=== PATIENT | male | born 1975 | race Hispanic/Latino ===

== ENCOUNTER 2016-11-17 12:37 | Inpatient (IN) | payer MEDICAID ==
[2016-11-17 12:38] VITALS: BMI 23.7
[2016-11-17 13:51] LABS: BASO % 0.3 % (0.0-2.0); EOS # 0.1 K/uL (0.0-0.7); EOS % 0.7 % (0.0-4.0); LYMPH # 1.9 K/uL (1.0-4.3); LYMPH % 22.2 % (20.0-40.0); MEAN CELL VOLUME 84.8 fL (80.0-94.0); MEAN CORPUSCULAR HEMOGLOBIN 28.6 pg (27.0-31.0); MEAN CORPUSCULAR HGB CONC 33.8 g/dL (33.0-37.0); MEAN PLATELET VOLUME 6.7 fL (7.2-11.7); MONO # 0.6 K/uL (0.0-0.8); RED CELL DISTRIBUTION WIDTH 12.8 % (11.5-14.5); WHITE BLOOD COUNT 8.8 K/uL (4.8-10.8)
[2016-11-17 13:58] LABS: RBC URINE < 1 /hpf (0-3); URINE BILIRUBIN NEGATIVE (NEGATIVE); URINE BLOOD NEGATIVE (NEGATIVE); URINE COLOR Yellow (YELLOW); URINE GLUCOSE (UA) NORMAL (Normal); URINE KETONE NEGATIVE (NEGATIVE); URINE LEUKOCYTE ESTERASE NEG Leu/uL (Negative); URINE PROTEIN NEGATIVE (NEGATIVE); URINE UROBILINOGEN NORMAL mg/dL (0.2-1.0); WBC URINE < 1 /hpf (0-5)
[2016-11-17 13:59] LABS: CHLORIDE 96 mmol/L (98-107); SODIUM 137 mmol/L (132-148)
[2016-11-17 14:00] LABS: POTASSIUM 4.3 mmol/L (3.6-5.2)
[2016-11-17 14:02] LABS: ALB/GLOB RATIO 1.3 (1.0-2.1); ALKALINE PHOSPHATASE 64 U/L (38-126); ALT/SGPT 36 U/L (21-72); AST/SGOT 34 U/L (17-59); BILIRUBIN,TOTAL 0.6 mg/dL (0.2-1.3); BLOOD UREA NITROGEN 19 mg/dL (9-20); CALCIUM 8.8 mg/dl (8.6-10.4); CARBON DIOXIDE 28 mmol/L (22-30); GFR AFRICAN-AMERICAN > 60; GLUCOSE,RANDOM 98 mg/dL (75-110); TOTAL PROTEIN 7.3 g/dL (6.3-8.3)
[2016-11-17 14:03] LABS: ALCOHOL SERUM < 10 mg/dl (0-10)
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
[2016-11-17] MEDS ORDERED: Buprenorphine Hydrochloride 2 mg SL ONE ×2 (22:25→23:25)
[2016-11-18] MEDS ORDERED: Buprenorphine Hydrochloride 2 mg SL ONE (10:00)
[2016-11-18] MEDS: Multiple Vitamins Tab PO SCH (10:41)
[2016-11-19] MEDS: Multiple Vitamins Tab PO SCH (09:48)
[2016-11-19] MEDS: Buprenorphine Hydrochloride 2 mg SL SCH (10:03)
[2016-11-19 16:03] VITALS: RESP 18
[2016-11-19 19:48] VITALS: O2SAT 99
--- NOTE | 2016-11-19 19:48 | PCM.PSYCH ---
Initial Psychiatric Evaluation - Initial Psychiatric Evaluation Legal Status: Capacity Chief Complaint (in patient's own words): I gotta get off the heroin. Patient's Reaction to Hospitalization: I'm glad I came. History of Present Illness and Precipitating Events: Pt is a single domiciled unemployed white male who [facility]. Pt started using painkillers at age 29. He uses 30 bags of heroin iv daily. Pt uses cocaine every time he uses heroin. He started drinking at age 15 and it has been a problem for several years. He drinks on average 1 pint of hard liquor a day. Pt. has been in several detoxes, including [facility], [facility], and [facility]. Pt's longest period of total sobriety was 8 years and he relapsed in 2004. Pt has no legal or history. Mother and father are both living; they diverced with pt was 1 yr. Pt has 2 half-brothers and 1 half sister. Pt denies any family history of substance abuse. However, there is a family history of depression and anxiety in his mother and a half-brother. Pt has been hospitalized for anxiety at the [facility]. He has been prescribed Seroquel, 100mg and Neurontin, 400 mg POTIE, Pt denies any past and current SI/HI. Current Medications: Active Medications Generic Name Dose Route Start Last Admin Trade Name Zev PRN Reason Stop Dose Admin Buprenorphine HCl 4 mg 11/19/16 09:52 11/19/16 10:03 Subutex SL 11/21/16 09:51 4 mg Q24H KAE Administration Taper Chlordiazepoxide 25 mg 11/17/16 17:59 11/18/16 21:02 Librium PO 25 mg Q4H PRN Administration Alcohol Withdrawal Chlordiazepoxide 25 mg 11/17/16 18:00 11/19/16 17:33 Librium PO 11/21/16 17:59 25 mg BID KAE Administration Taper Clonidine HCl 0.1 mg 11/17/16 17:05 Catapres PO Q8 PRN opiate withdrawal Folic Acid 1 mg 11/18/16 10:00 11/19/16 09:48 Folic Acid PO 1 mg DAILY KAE Administration Gabapentin 400 mg 11/18/16 14:00 11/19/16 17:33 Neurontin PO 400 mg TID KAE Administration Multivitamins 1 tab 11/18/16 10:00 11/19/16 09:48 Hexavitamin PO 1 tab DAILY KAE Administration Quetiapine Fumarate 100 mg 11/17/16 22:30 11/18/16 21:02 Seroquel PO 100 mg HS KAE Administration Thiamine HCl 100 mg 11/18/16 10:00 11/19/16 09:48 Vitamin B1 Tab PO 100 mg DAILY KAE Administration Trazodone HCl 50 mg 11/17/16 17:04 Desyrel PO HS PRN insomnia Past Psychiatric History - Past Psychiatric History Prior Professional Help: [facility]PI Pertinent Medical Hx (Current Medical&Sleep Prob, Allergies): Allergies Allergy/AdvReac Type Severity Reaction Status Date / Time Penicillins Allergy Verified 05/28/16 16:53 shellfish derived Allergy Verified 05/28/16 16:53 trazodone Allergy Verified 05/28/16 16:53 QUEtiapine [Seroquel] 100 mg PO HS PRN #30 tab 06/02/16 Gabapentin [Neurontin] 400 mg PO TID #90 cap 11/01/16 hydrOXYzine HCl [Atarax] 50 mg PO BID #60 tab 11/01/16 Cyclobenzaprine [Flexeril] 5 mg PO BID PRN 11/17/16 Review of Systems - Constitutional Constitutional: Malaise - EENT Eyes: UNREMARKABLE Ears: UNREMARKABLE Additional comments: Rhinorrhea - Cardiovascular Cardiovascular: UNREMARKABLE - Respiratory Respiratory: UNREMARKABLE - Gastrointestinal Gastrointestinal: Cramping, Diarrhea, Nausea - Genitourinary Genitourinary: UNREMARKABLE - Reproductive: Male Reproductive:Male: UNREMARKABLE - Musculoskeletal Musculoskeletal: Arthralgias, Myalgias - Integumentary Integumentary: UNREMARKABLE - Neurological Neurological: Tremor - Endocrine Endocrine: UNREMARKABLE - Hematologic/Lymphatic Hematologic: UNREMARKABLE Mental Status Examination - Personal Presentation Personal Presentation: Looks stated age - Affect Affect: Constricted - Motor Activity Motor Activity: Calm - Reliability in Providing Information Reliability in Providing Information: Good - Speech Speech: Organized - Mood Mood: Anxious - Formal Thought Process Formal Thought Process: No Impairment - Cognitive Functions Orientation: Person, Place, Situation, Time Sensorium: Alert Attention/Concentration: Attentive Abstract Thinking: As evidence by abstract perception of proverbs Estimate of Intelligence: Average Judgement: Intact, as evidence by: Good judgement Memory: Recent intact, as evidence by: Ability to recall events of the day, Remote intact, as evidenced by: Abilit to recall sig. life events - Risk Risk: Withdrawal - Strength & Assets Inventory Strength & Assets Inventory: Intelligence, Employment history, Cooperative DSM 5 DX - DSM 5 DSM 5 Diagnosis: Opiate withdrawal, severe Opiate use disorder, severe Alcohol withdrawal, severe Cocaine use disorder, severe Anxiety Opiate withdrawal, Methadone taper, Group, Milieu, recreational therapy, individual supportive psychotherapy. CBT CA Opiate use disorder, Group, Milieu, recreational therapy, individual supportive psychotherapy. CBT CA Alcohol withdrawal, Librium taper, Group, Milieu, recreational therapy, individual supportive psychotherapy. CBT CA Cocaine use disorder Group, Milieu, recreational therapy, individual supportive psychotherapy. CBT CA Anxiety. Seroquel and Neurontin - Recommended/Plan of Treatment Projected ELOS: 5 days Prognosis: good Discharge Plan and Discharge Criteria: no acute withdrawal symptoms - Smoking Cessation Smoking Cessation Initiated: No
--- NOTE | 2016-11-19 21:37 | PCM.PYCHPN ---
Psychiatric Progress Note - Psychiatric Progress Note Patient Chief Complaint: i feel like "shit" Ihave aches and pains, hot and cold sweats Problems Identified/Issues Discussed: withdrawal symptoms, PAWS relapse prevention Medical Problems: nothing acute Diagnostic Results: reviewed DSM 5 Symptoms Update: moderate withdrawal symptoms\\ Medication Change: Yes (subutex and librium tapers) Mental Status Examination - Cognitive Function Orientation: Place, Situation, Time Memory: Intact Attention: WNL Concentration: Poor Association: WNL Fund of Knowledge: WNL - Mood Mood: Anxious - Affect Affect: Constricted - Speech Speech: Appropriate - Suicidal Ideation Suicidal Ideation: No - Homicidal Ideation Homicidal Ideation: No Goal/Treatment Plan - Goal/Treatment Plan Need for Continued Stay: Discharge may exacerbated symptoms Progress Toward Problem(s) and Goals/Treatment Plan: opiate withdrawal- subutex protocoll opiate use disorder groups, supportive psychotherapy [place] CBT alcohol withdrawal librium taper alcohol use disorder groups supportive psychotherapy [place] CBT cocaine use disorder group supportive psychotherapy [place] CBT anxiety Neurontin Trazodone Estimated Date of D/C: 11/21/16 - Smoking Cessation Smoking Cessation Initiated: No
[2016-11-20 05:21] VITALS: TEMP 97.7
[2016-11-20 09:07] VITALS: BP 99/63; PULSE 81
[2016-11-20] MEDS: Multiple Vitamins Tab PO SCH (09:14)
[2016-11-20] MEDS: Buprenorphine Hydrochloride 2 mg SL SCH (09:14)
--- NOTE | 2016-11-20 09:56 | PCM.PYCHDC ---
Mental Status Examination - Mental Status Examination Orientation: Person Discharge Summary - Discharge Note Consultations:: List each consultation separately and include: 1. Reason for request. 2. Findings. 3. Follow-up Summary of Hospital Course include:: 1. Description of specific treatment plan utilized for patients during their course of treatmen. 2. Summarize the time- course for resolution of acute symptoms and/or regressed behaviors. 3. Describe issues identified and worked on during hospitalization. 4. Describe medication utilized. 5. Describe medical problems identified and treated. 6. Reassessment of suicide risk - Final Diagnosis (DSM 5) Condition upon Discharge: GOOD Disposition: HOME/ ROUTINE Prescriptions/Medication Reconciliation: Gabapentin [Neurontin] 400 mg PO TID #90 cap QUEtiapine [Seroquel] 100 mg PO HS #30 tab
== END 2016-11-20 10:30 | disposition home or self-care (01) | DRG 745 ==
LOC: C.ER 12:37 → C.7D 16:53
PROVIDERS: ADMIT Psychiatry & Neurology Psychiatry; ATTEND Psychiatry & Neurology Psychiatry
PROC: HZ52ZZZ Individual Psychotherapy for Substance Abuse Treatment, Cognitive-Behavioral (ICD-10-PCS; principal; 2016-11-17)
PROC: HZ59ZZZ Individual Psychotherapy for Substance Abuse Treatment, Supportive (ICD-10-PCS; 2016-11-17)
PROC: HZ91ZZZ Pharmacotherapy for Substance Abuse Treatment, Methadone Maintenance (ICD-10-PCS; 2016-11-17)
PROC: HZ83ZZZ Medication Management for Substance Abuse Treatment, Antabuse (ICD-10-PCS; 2016-11-17)
PROC: HZ2ZZZZ Detoxification Services for Substance Abuse Treatment (ICD-10-PCS; 2016-11-17)
DX: F11.23 Opioid dependence with withdrawal (principal); F14.20 Cocaine dependence, uncomplicated; F10.239 Alcohol dependence with withdrawal, unspecified; Z81.8 Family history of other mental and behavioral disorders; F41.9 Anxiety disorder, unspecified

== ENCOUNTER 2017-03-06 08:44 | Inpatient (IN) | payer MEDICAID ==
[2017-03-06 08:45] VITALS: BMI 23.7
[2017-03-06 09:47] LABS: BASO # 0.1 K/uL (0.0-0.2); BASO % 0.9 % (0.0-2.0); EOS # 0.1 K/uL (0.0-0.7); EOS % 0.7 % (0.0-4.0); HEMOGLOBIN 13.2 g/dL (12.0-18.0); LYMPH # 1.5 K/uL (1.0-4.3); LYMPH % 21.9 % (20.0-40.0); MEAN CELL VOLUME 85.6 fL (80.0-94.0); MEAN CORPUSCULAR HEMOGLOBIN 28.8 pg (27.0-31.0); MEAN CORPUSCULAR HGB CONC 33.7 g/dL (33.0-37.0); MEAN PLATELET VOLUME 7.3 fL (7.2-11.7); MONO # 0.6 K/uL (0.0-0.8); NEUT # 4.8 K/uL (1.8-7.0); NEUT % 68.5 % (50.0-75.0); NRBC % 0.1 % (0.0-2.0); RBC 4.58 Mil/uL (4.40-5.90); RED CELL DISTRIBUTION WIDTH 12.8 % (11.5-14.5)
[2017-03-06 09:52] LABS: ALB/GLOB RATIO 1.5 (1.0-2.1); GFR AFRICAN-AMERICAN > 60; GFR NON-AFRICAN AMERICAN > 60
[2017-03-06 09:53] LABS: ALT/SGPT 36 U/L (21-72); AST/SGOT 33 U/L (17-59); BLOOD UREA NITROGEN 17 mg/dL (9-20); CALCIUM 8.8 mg/dl (8.6-10.4)
[2017-03-06 11:23] LABS: URINE BACTERIA RARE (<OCC); URINE BILIRUBIN NEGATIVE (NEGATIVE); URINE BLOOD NEGATIVE (NEGATIVE); URINE CLARITY Clear (Clear); URINE COLOR Yellow (YELLOW); URINE GLUCOSE (UA) NORMAL (Normal); URINE LEUKOCYTE ESTERASE NEG Leu/uL (Negative); URINE NITRATE NEGATIVE (NEGATIVE); URINE PROTEIN NEGATIVE (NEGATIVE); URINE UROBILINOGEN NORMAL mg/dL (0.2-1.0)
[2017-03-06 11:29] LABS: BARBITURATES, UR NEGATIVE (NEGATIVE)
[2017-03-06 11:33] LABS: PHENCYCLIDINE, UR NEGATIVE (NEGATIVE)
[2017-03-06 11:57] LABS: BENZODIAZEPINES, UR POSITIVE (NEGATIVE)
[2017-03-06 11:58] LABS: OPIATES, UR POSITIVE (NEGATIVE)
--- NOTE | 2017-03-06 12:03 | C.PDOC ---
History Of Present Illness 42-year-old male with PMHx of EtOH abuse, Depression and Anxiety presents to the emergency department requesting alcohol & opiate detox. Patient is a daily drinker, states his last drink was last night. He denies current physical complaints, and has no SI/HI. Time Seen by Provider: 03/06/17 08:59 Chief Complaint (Nursing): Substance Abuse History Per: Patient History/Exam Limitations: no limitations Onset/Duration Of Symptoms: Persistent Current Symptoms Are (Timing): Still Present Modifying Factor(s): Alcohol Severity: Moderate Past Medical History Reviewed: Historical Data, Nursing Documentation, Vital Signs Vital Signs: Last Vital Signs Temp 98.1 F 03/10/17 09:00 Pulse 73 03/10/17 09:00 Resp 18 03/10/17 09:00 BP 117/79 03/10/17 09:00 Pulse Ox 99 03/10/17 09:00 - Medical History PMH: Anxiety, Depression - [facility] Procedures DETOXIFICATION SERVICES FOR SUBSTANCE ABUSE TREATMENT (03/06/17) GROUP STRUCTURES ASSEMBLER FOR SUBSTANCE ABUSE TREATMENT, PSYCHOEDUCATION (03/06/17) GROUP STRUCTURES ASSEMBLER FOR SUBSTANCE ABUSE, COGNITIVE BEHAVIORAL (10/28/16) INDIV STRUCTURES ASSEMBLER FOR SUBSTANCE ABUSE TREATMENT, PSYCHOEDUCATION (10/28/16) INDIV STRUCTURES ASSEMBLER FOR SUBSTANCE ABUSE, COGNITIVE BEHAVIORAL (10/28/16) INDIV PSYCHOTHERAPY FOR SUBSTANCE ABUSE TREATMENT, SUPPORT (03/06/17) INDIV PSYCHOTHERAPY FOR SUBSTANCE ABUSE, COGNITIV BEHAVIORAL (11/17/16) MEDS MGMT FOR SUBSTANCE ABUSE TREATMENT, ANTABUSE (11/17/16) PHARMACOTHERAPY FOR SUBSTANCE ABUSE, METHADONE MAINT (11/17/16) Family History: States: No Known Family Hx - Social History Hx Tobacco Use: Yes Hx Alcohol Use: Yes Hx Substance Use: Yes - Immunization History Hx Tetanus Toxoid Vaccination: No Hx Influenza Vaccination: No Hx Pneumococcal Vaccination: No Review Of Systems Except As Marked, All Systems Reviewed And Found Negative. Constitutional: Negative for: Fever, Chills Cardiovascular: Negative for: Chest Pain, Palpitations Respiratory: Negative for: Shortness of Breath Gastrointestinal: Negative for: Nausea, Vomiting, Abdominal Pain, Diarrhea Neurological: Negative for: Weakness, Numbness, Headache, Dizziness Physical Exam - Physical Exam Appears: Well, Non-toxic, No Acute Distress Skin: Normal Color, Warm, Dry, No Rash Head: Atraumatic, Normacephalic Eye(s): bilateral: Normal Inspection Oral Mucosa: Moist Cardiovascular: Rhythm Regular Respiratory: Normal Breath Sounds, No Rales, No Rhonchi, No Wheezing Gastrointestinal/Abdominal: Normal Exam, Bowel Sounds, Soft, No Tenderness Extremity: Normal ROM Neurological/Psych: Oriented x3, Other (no tremors noted) ED Course And Treatment - Laboratory Results Result Diagrams: 03/06/17 09:27 03/06/17 09:27 O2 Sat by Pulse Oximetry: 100 (on RA) Pulse Ox Interpretation: Normal Progress Note: Blood work, UA, UDS ordered and reviewed. 12:30- Patient medically cleared. 12:41- Patient accepted by Dr. Martinez for opiate/alcohol detox admission' Disposition - Disposition Disposition: HOSPITALIZED Disposition Time: 12:41 Condition: STABLE - Clinical Impression Clinical Impression: Opiate dependence, Alcohol dependence - Scribe Statement The provider has reviewed the documentation as recorded by the Scribe (Aracely Hernandez) All medical record entries made by the Scribe were at my direction and personally dictated by me. I have reviewed the chart and agree that the record accurately reflects my personal performance of the history, physical exam, medical decision making, and the department course for this patient. I have also personally directed, reviewed, and agree with the discharge instructions and disposition. Decision To Admit - Pt Status Changed To: Hospital Disposition Of: Inpatient - Admit Certification Admit to Inpatient:: After my assessment, the patient will require hospitalization for at least two midnights. This is because of the severity of symptoms shown, intensity of services needed, and/or the medical risk in this patient being treated as an outpatient. - InPatient: Physician Admission Certification: I certify that this patient requires 2 or more midnights of care for the following reason:: see notes - . Bed Request Type: Detox Admitting Physician: Symone Martinez Patient Diagnosis: Alcohol dependence, Opiate dependence
--- NOTE | 2017-03-06 15:06 | PCM.PSYCH ---
Initial Psychiatric Evaluation - Initial Psychiatric Evaluation Type of Admission: Voluntary Legal Status: Capacity Chief Complaint (in patient's own words): "Heroin" History of Present Illness and Precipitating Events: The patient is seen, chart reviewed and case discussed. 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 He was a poor historian due to oversedation The patient is using heroin up to 40 bags intravenously for the past 13 years he states. However, he relapsed 2 weeks ago after a short period of sobriety. He also uses cocaine since early teens, 2 mg a day by snorting. He drinks alcohol but "not too much" and smokes cigarettes half pack per day. He denies other drugs. This is his third detox and he has been to rehabilitation 4 or 5 times. He was on Vivitrol and he is due for a shot due next week. He denies psych symptoms. Past psych history: Denies Family psych history: Denies Medical history: Denies Past Psychiatric History - Past Psychiatric History Previous Treatment History: None Pertinent Medical Hx (Current Medical&Sleep Prob, Allergies): Allergies Allergy/AdvReac Type Severity Reaction Status Date / Time Penicillins Allergy Verified 03/06/17 08:48 shellfish derived Allergy Verified 03/06/17 08:48 trazodone Allergy Verified 03/06/17 08:48 Gabapentin [Neurontin] 400 mg PO TID #90 cap 11/20/16 Vivitrol IM 03/06/17 Review of Systems - Psychiatric Psychiatric: Abnormal Sleep Pattern, Anxiety. absent: Homicidal Ideation, Suicidal Ideation Mental Status Examination - Personal Presentation Personal Presentation: Looks stated age - Affect Affect: Constricted - Motor Activity Motor Activity: Calm - Reliability in Providing Information Reliability in Providing Information: Fair - Speech Speech: Organized - Mood Mood: Anxious - Formal Thought Process Formal Thought Process: No Impairment - Cognitive Functions Orientation: Person, Place, Situation, Time Sensorium: Drowsy Attention/Concentration: Easily distracted Estimate of Intelligence: Average Judgement: Intact, as evidence by: Insight regarding need for hospitalization Memory: Recent intact, as evidence by: Ability to recall events of the day, Remote impaired as evidenced by: Inability to recall sig life events - Risk Risk: Withdrawal, Diminished functioning - Strength & Assets Inventory Strength & Assets Inventory: Cooperative DSM 5 DX - DSM 5 DSM 5 Diagnosis: Opioid withdrawal Opioid use d/o - severe Cocaine use d/o - severe - Recommended/Plan of Treatment Treatment Recommendations and Plan of Treatment: Subutex or methadone detox when he withdrws more Gabapentin for augmentation As needed meds and vitamins Attend groups and activities NM for abstinence and CBT for relapse prevention Support and psychoeducation Consider and encourage MAT Refer to after care 33 min Projected ELOS: 4 days Prognosis: Good with treatment Discharge Plan and Discharge Criteria: No wdw sxs refer to [facility] and IOP
--- NOTE | 2017-03-06 15:22 | PCM.BM ---
<JmNilsa - Last Filed: 03/06/17 15:36> Treatment Plan Problems - Problems identified on initial assessmt DENIAL Date Initiated: 03/06/17 Assessment reference: NA Status: Active Priority: 1 LOW MOTIVATION TO CHANGE Date Initiated: 03/06/17 Assessment reference: NA Status: Active Priority: 2 Treatment assets and liabiliti Patient Assests: adapts well, cooperative, physically healthy Patient Liabilities: substance abuse - Milieu Protocol Maintain good personal hygiene: daily Encourage regular showers, daily Remind patient to perform daily oral care, daily Assist patient to perform ADL's Conduct patient checks and document Observation sheet: Q15 minutes Maintain personal safety: every shift Educate patient to report safety concerns to staff, every shift Monitor environment for contraband/sharps Medication safety: Monitor for expected outcome, potential side effects: every shift, Assess barriers to learning: every shift, Assess readiness for medication education: every shift Milieu Narrative: Subutex or methadone detox when he withdrws more Gabapentin for augmentation As needed meds and vitamins Attend groups and activities [place] for abstinence and CBT for relapse prevention Support and psychoeducation Consider and encourage MAT Refer to after care 33 min Discharge/Continuing Care - Additional Comments Subutex or methadone detox when he withdrws more Gabapentin for augmentation As needed meds and vitamins Attend groups and activities RI for abstinence and CBT for relapse prevention Support and psychoeducation Consider and encourage MAT Refer to after care 33 min - Treatment Team Participation Patient/Family/SO Statement: Subutex or methadone detox when he withdrws more Gabapentin for augmentation As needed meds and vitamins Attend groups and activities RI for abstinence and CBT for relapse prevention Support and psychoeducation Consider and encourage MAT Refer to after care 33 min <Symone Martinze - Last Filed: 03/08/17 11:19> - Diagnosis (1) Heroin dependence Status: Acute Interventions: 03/07/17 09:54 * Assess 7x/week regarding severity of withdrawal * Educate regarding risks, benefits, side effects and alternatives of medications * Motivational interviewing for abstinence 03/08/17 11:18 * Use CBT for relapse prevention * Medication management for withdrawal symptoms * Encourage medication assisted treatment *
[2017-03-07] MEDS ORDERED: Aluminum Hydroxide/Magnesium Hydroxide Susp (30 mL) PO PRN (08:45)
[2017-03-07] MEDS ORDERED: Buprenorphine Hydrochloride 2 mg SL ONE ×2 (13:00→13:55)
--- NOTE | 2017-03-07 14:05 | PCM.PYCHPN ---
Psychiatric Progress Note - Psychiatric Progress Note Patient seen today, length of contact: 17 min Patient Chief Complaint: "I just want to get better and I don't want to be dependent on any medication" Problems Identified/Issues Discussed: The pt is seen, chart reviewed, case discussed with staff. Support given, CBT and NE used briefly No new symptoms reported, improving slowly and needs more time No SEs from medications, risks discussed. After care discussed. Patient doesn't want to go to rehab or stay on any medication. Expresses fear of becoming dependent on medications and believes he can stay clean after detox without rehab or medications. Medication Change: Yes (Detox changes daily) Medical Record Reviewed: Yes Mental Status Examination - Cognitive Function Orientation: Person, Place, Situation, Time Memory: Intact Attention: WNL Concentration: WNL Association: WNL Fund of Knowledge: WNL - Mood Mood: Anxious - Affect Affect: Constricted - Speech Speech: Appropriate - Formal Thought Process Formal Thought Process: No Impairment - Suicidal Ideation Suicidal Ideation: No - Homicidal Ideation Homicidal Ideation: No Goal/Treatment Plan - Goal/Treatment Plan Need for Continued Stay: Discharge may exacerbated symptoms, Severe functional impairment Progress Toward Problem(s) and Goals/Treatment Plan: Subutex or methadone detox when he withdraws more Gabapentin for augmentation As needed meds and vitamins Attend groups and activities [place] for abstinence and CBT for relapse prevention Support and psychoeducation Consider and encourage MAT Refer to after care Estimated Date of D/C: 03/10/17
[2017-03-08] MEDS: Buprenorphine Hydrochloride 2 mg SL SCH (10:26)
--- NOTE | 2017-03-08 11:22 | PCM.PYCHPN ---
Psychiatric Progress Note - Psychiatric Progress Note Patient seen today, length of contact: 16 min Patient Chief Complaint: "I'm tired" Problems Identified/Issues Discussed: The pt is seen, chart reviewed, case discussed with staff. Support given, CBT and DC used briefly No new symptoms reported, improving slowly and needs more time No SEs from medications, risks discussed. After care discussed - still only wants Vivitrol shot Medication Change: Yes (Detox changes daily) Medical Record Reviewed: Yes Mental Status Examination - Cognitive Function Orientation: Person, Place, Situation, Time Memory: Intact Attention: WNL Concentration: WNL Association: WNL Fund of Knowledge: WNL - Mood Mood: Anxious - Affect Affect: Constricted - Speech Speech: Appropriate - Formal Thought Process Formal Thought Process: No Impairment - Suicidal Ideation Suicidal Ideation: No - Homicidal Ideation Homicidal Ideation: No Goal/Treatment Plan - Goal/Treatment Plan Need for Continued Stay: Discharge may exacerbated symptoms, Severe functional impairment Progress Toward Problem(s) and Goals/Treatment Plan: Subutex or methadone detox when he withdraws more Gabapentin for augmentation As needed meds and vitamins Attend groups and activities DC for abstinence and CBT for relapse prevention Support and psychoeducation Refer to after care as planned Estimated Date of D/C: 03/10/17
[2017-03-09] MEDS: Buprenorphine Hydrochloride 2 mg SL SCH (10:27)
[2017-03-09 13:04] VITALS: RESP 18
--- NOTE | 2017-03-09 14:35 | PCM.PYCHPN ---
Psychiatric Progress Note - Psychiatric Progress Note Patient seen today, length of contact: 15 min Patient Chief Complaint: "I can't sleep" Problems Identified/Issues Discussed: The pt is seen, chart reviewed, case discussed with staff. Support given, CBT and NJ used briefly No new symptoms reported, improving slowly and needs more time No SEs from medications, risks discussed. Seroquel increased Medication Change: Yes (increase seroquel) Medical Record Reviewed: Yes Mental Status Examination - Cognitive Function Orientation: Person, Place, Situation, Time Memory: Intact Attention: WNL Concentration: WNL Association: WNL Fund of Knowledge: WNL - Mood Mood: Anxious - Affect Affect: Constricted - Speech Speech: Appropriate - Formal Thought Process Formal Thought Process: No Impairment - Suicidal Ideation Suicidal Ideation: No - Homicidal Ideation Homicidal Ideation: No Goal/Treatment Plan - Goal/Treatment Plan Need for Continued Stay: Discharge may exacerbated symptoms, Severe functional impairment Progress Toward Problem(s) and Goals/Treatment Plan: Subutex or methadone detox when he withdraws more Gabapentin for augmentation As needed meds and vitamins Attend groups and activities NJ for abstinence and CBT for relapse prevention Support and psychoeducation Refer to after care as planned Estimated Date of D/C: 03/10/17
--- NOTE | 2017-03-10 08:57 | PCM.PYCHDC ---
Mental Status Examination - Mental Status Examination Orientation: Person, Place, Situation, Time Memory: Intact Mood: Neutral Speech: Soft Attention: WNL Concentration: WNL Association: WNL Fund of Knowledge: WNL Formal Thought Process: No Impairment Description of patient's judgement and insight: good, fair Psychotic Thoughts and Behaviors: denies any AVH Suicidal Ideation: No Current Homicidal Ideation?: No Discharge Summary - Discharge Note Reason for Hospitalization: The patient is seen, chart reviewed and case discussed. 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 He was a poor historian due to oversedation The patient is using heroin up to 40 bags intravenously for the past 13 years he states. However, he relapsed 2 weeks ago after a short period of sobriety. He also uses cocaine since early teens, 2 mg a day by snorting. He drinks alcohol but "not too much" and smokes cigarettes half pack per day. He denies other drugs. This is his third detox and he has been to rehabilitation 4 or 5 times. He was on Vivitrol and he is due for a shot due next week. He denies psych symptoms. Consultations:: List each consultation separately and include: 1. Reason for request. 2. Findings. 3. Follow-up Summary of Hospital Course include:: 1. Description of specific treatment plan utilized for patients during their course of treatmen. 2. Summarize the time- course for resolution of acute symptoms and/or regressed behaviors. 3. Describe issues identified and worked on during hospitalization. 4. Describe medication utilized. 5. Describe medical problems identified and treated. 6. Reassessment of suicide risk Summary of Hospital Course: During the course of his stay, patient (pt) started progressively improving and he reports improvement in his mood and withdrawal symptoms. He started attending groups and meetings and started socializing. Patient denied any feelings of hopelessness, helplessness, and worthlessness, denied any problem with the sleep or appetite, denied suicidal ideation or homicidal ideation. Pt denied any auditory or visual hallucinations. Some changes were made in his current medications and patient was discharged on following medications. He tolerated these medications very well and denied any side effects. - Final Diagnosis (DSM 5) Condition upon Discharge: GOOD DSM 5: Opioid withdrawal Opioid use d/o - severe Cocaine use d/o - severe Disposition: HOME/ ROUTINE Follow-up Treatment Plan: Education: Pt was educated and counseled about the risks and benefits of taking and not taking medications. Pt was educated and counseled about the risks of drinking and abusing drugs. Pt was educated and counseled to go to the ER or call 911 if pt develop suicidal ideation or homicidal ideation, worsening of symptoms or severe side effects of the meds. Prescriptions/Medication Reconciliation: Gabapentin [Neurontin] 300 mg PO TID #90 cap QUEtiapine [Seroquel] 200 mg PO HS #30 tab - Smoking Cessation Smoking Cessation Medication prescribed: No - Antipsychotic Medications Pt discharged on 2 or more routine antipsychotic medications: No
[2017-03-10] MEDS: Buprenorphine Hydrochloride 2 mg SL SCH (09:10)
[2017-03-10 12:05] VITALS: BP 117/79; PULSE 73; TEMP 98.1
[2017-03-16 09:27] VITALS: O2SAT 100
== END 2017-03-10 09:35 | disposition home or self-care (01) | DRG 745 ==
LOC: C.ER 08:44 → C.7D 12:41
PROVIDERS: ADMIT Psychiatry & Neurology Psychiatry; ATTEND Psychiatry & Neurology Psychiatry
PROC: HZ2ZZZZ Detoxification Services for Substance Abuse Treatment (ICD-10-PCS; principal; 2017-03-06)
PROC: HZ59ZZZ Individual Psychotherapy for Substance Abuse Treatment, Supportive (ICD-10-PCS; 2017-03-06)
PROC: HZ46ZZZ Group Counseling for Substance Abuse Treatment, Psychoeducation (ICD-10-PCS; 2017-03-06)
DX: F11.23 Opioid dependence with withdrawal (principal); F14.10 Cocaine abuse, uncomplicated; F10.10 Alcohol abuse, uncomplicated; F17.210 Nicotine dependence, cigarettes, uncomplicated

== ENCOUNTER 2017-05-18 04:43 | Inpatient (IN) | payer MEDICAID ==
[2017-05-18 04:44] VITALS: BMI 23.7
--- NOTE | 2017-05-18 05:31 | C.PDOC ---
History Of Present Illness 42 y/o male presents to the ED requesting multidrug detox. Patient also reports worsening depression with suicidal ideation. Patient also has complaint of redness to his right forearm which began around 1 week ago. Patient states he was examined at [facility] where he was discharged with a prescription without being given any IV antibiotics or undergoing bloodwork/ imaging. Patient denies fever, chills. Time Seen by Provider: 05/18/17 05:29 Chief Complaint (Nursing): Substance Abuse History Per: Patient History/Exam Limitations: no limitations Onset/Duration Of Symptoms: Hrs Current Symptoms Are (Timing): Still Present Suicide/Self Injury Attempted (Context): None Associated Symptoms: Depression, Suicidal Thoughts, Suicidal Plan Involuntary Hold By: None Recent travel outside of the [place]: No Additional History Per: Patient Past Medical History Reviewed: Historical Data, Nursing Documentation, Vital Signs Vital Signs: Last Vital Signs Temp 98.5 F 05/18/17 04:59 Pulse 95 H 05/18/17 04:59 Resp 20 05/18/17 04:59 BP 140/82 05/18/17 04:59 Pulse Ox 96 05/18/17 06:48 - Medical History PMH: Anxiety, Depression Surgical History: No Surg Hx - [facility] Procedures DETOXIFICATION SERVICES FOR SUBSTANCE ABUSE TREATMENT (03/06/17) GROUP BOILER ENGINEER FOR SUBSTANCE ABUSE TREATMENT, PSYCHOEDUCATION (03/06/17) GROUP BOILER ENGINEER FOR SUBSTANCE ABUSE, COGNITIVE BEHAVIORAL (10/28/16) INDIV BOILER ENGINEER FOR SUBSTANCE ABUSE TREATMENT, PSYCHOEDUCATION (10/28/16) INDIV BOILER ENGINEER FOR SUBSTANCE ABUSE, COGNITIVE BEHAVIORAL (10/28/16) INDIV PSYCHOTHERAPY FOR SUBSTANCE ABUSE TREATMENT, SUPPORT (03/06/17) INDIV PSYCHOTHERAPY FOR SUBSTANCE ABUSE, COGNITIV BEHAVIORAL (11/17/16) MEDS MGMT FOR SUBSTANCE ABUSE TREATMENT, ANTABUSE (11/17/16) PHARMACOTHERAPY FOR SUBSTANCE ABUSE, METHADONE MAINT (11/17/16) Family History: States: Unknown Family Hx - Social History Hx Tobacco Use: Yes Hx Alcohol Use: No Hx Substance Use: Yes - Immunization History Hx Tetanus Toxoid Vaccination: No Hx Influenza Vaccination: No Hx Pneumococcal Vaccination: No Review Of Systems Constitutional: Negative for: Fever, Chills Skin: Positive for: Other (redness in right forearm ) Psych: Positive for: Depression, Suicidal ideation, Other (multidrug detox ) Physical Exam - Physical Exam Appears: Non-toxic, No Acute Distress Skin: Warm, Dry, Other (firm, local induration in right AC area with local cellulitis to mid-forearm ) Head: Atraumatic, Normacephalic Eye(s): bilateral: Normal Inspection Oral Mucosa: Moist Neck: Supple Chest: Symmetrical Cardiovascular: Rhythm Regular Respiratory: Normal Breath Sounds Extremity: Normal ROM, Capillary Refill (less than 2 seconds ) Neurological/Psych: Oriented x3, Normal Speech, Normal Cognition, Other (calm, cooperative, no active intoxication ) Gait: Steady ED Course And Treatment - Laboratory Results Result Diagrams: 05/18/17 06:35 ECG: Interpreted By Me ECG Rhythm: Sinus Rhythm ECG Interpretation: Normal Rate From EC O2 Sat by Pulse Oximetry: 96 (on RA) Pulse Ox Interpretation: Normal - Radiology CXR: Interpreted by Me CXR Interpretation: Yes: No Acute Disease - Other Rad R ELBOW X-Ray: Interpreted by Me (NEG) Progress Note: labs, CT Upper Extremity, Right Elbow XR, and CXR ordered and reviewed. Patient reiceived Bactrim PO and Cleocin IVP. Progress - Data Reviewed Data Reviewed: Lab, Diagnostic imaging, Old records Disposition - Disposition Disposition Time: 07:00 Condition: STABLE Forms: [employer] (Marshallese) - Clinical Impression Clinical Impression: Drug dependence, Opiate dependence, Cellulitis - Scribe Statement The provider has reviewed the documentation as recorded by the Scribe (Heidi López) Provider Attestation: All medical record entries made by the Scribe were at my direction and personally dictated by me. I have reviewed the chart and agree that the record accurately reflects my personal performance of the history, physical exam, medical decision making, and the department course for this patient. I have also personally directed, reviewed, and agree with the discharge instructions and disposition. Physician Patient Turnover Patient Signed Over To: Arelis Ferreira Handoff Comments: aaron ct, dispo
[2017-05-18] MEDS ORDERED: Tmp-Smz 800 mg-160 mg DS Tab PO STA (05:38)
[2017-05-18 06:14] LABS: RBC URINE 156 /hpf (0-3); URINE BACTERIA RARE (<OCC); URINE BILIRUBIN NEGATIVE (NEGATIVE); URINE BLOOD 3+ (NEGATIVE); URINE COLOR Yellow (YELLOW); URINE GLUCOSE (UA) NORMAL (Normal); URINE KETONE NEGATIVE (NEGATIVE); URINE LEUKOCYTE ESTERASE NEG Leu/uL (Negative); URINE PROTEIN 1+ mg/dL (NEGATIVE); URINE UROBILINOGEN NORMAL mg/dL (0.2-1.0); WBC URINE 2 /hpf (0-5)
[2017-05-18 06:40] LABS: BASO % 0.3 % (0.0-2.0); EOS % 0.1 % (0.0-4.0); HEMATOCRIT 37.2 % (35.0-51.0); LYMPH # 1.1 K/uL (1.0-4.3); LYMPH % 9.5 % (20.0-40.0); MEAN CELL VOLUME 85.6 fL (80.0-94.0); MEAN CORPUSCULAR HEMOGLOBIN 29.1 pg (27.0-31.0); MEAN CORPUSCULAR HGB CONC 33.9 g/dL (33.0-37.0); MEAN PLATELET VOLUME 7.1 fL (7.2-11.7); MONO # 0.3 K/uL (0.0-0.8); MONO % 2.9 % (0.0-10.0); PLATELET COUNT 324 K/uL (130-400); RED CELL DISTRIBUTION WIDTH 13.4 % (11.5-14.5); WHITE BLOOD COUNT 11.9 K/uL (4.8-10.8)
[2017-05-18 06:46] LABS: CHLORIDE 100 mmol/L (98-107); POTASSIUM 4.5 mmol/L (3.6-5.2); SODIUM 141 mmol/L (132-148)
[2017-05-18 06:49] LABS: ALB/GLOB RATIO 1.4 (1.0-2.1); ALKALINE PHOSPHATASE 70 U/L (38-126); ALT/SGPT 34 U/L (21-72); AST/SGOT 26 U/L (17-59); BILIRUBIN,TOTAL 0.9 mg/dL (0.2-1.3); BLOOD UREA NITROGEN 18 mg/dL (9-20); CALCIUM 9.5 mg/dl (8.6-10.4); CARBON DIOXIDE 28 mmol/L (22-30); GFR AFRICAN-AMERICAN > 60; GLUCOSE,RANDOM 117 mg/dL (75-110); TOTAL PROTEIN 7.3 g/dL (6.3-8.3)
[2017-05-18 06:50] LABS: ALCOHOL SERUM < 10 mg/dl (0-10)
[2017-05-18] MEDS ORDERED: Tmp-Smz 800 mg-160 mg DS Tab ONE (06:56)
[2017-05-18] MEDS ORDERED: Clindamycin 600mg/50ml NS 600 MG/50 ML BAG IVPB ONE (06:57)
[2017-05-18 07:48] LABS: BASOPHIL 1 % (0-2); EOSINOPHIL 1 % (0-4); NEUTROPHIL 87 % (50-75); TOTAL CELLS COUNTED 100
--- NOTE | 2017-05-18 07:48 | RAD ---
HISTORY: Detox/Psy COMPARISON: No prior. TECHNIQUE: Chest PA and lateral FINDINGS: LUNGS: No active pulmonary disease. PLEURA: No significant pleural effusion identified. No pneumothorax apparent. CARDIOVASCULAR: Normal. OSSEOUS STRUCTURES: No significant abnormalities. VISUALIZED UPPER ABDOMEN: Normal. OTHER FINDINGS: None. IMPRESSION: No active disease.
[2017-05-18 07:49] LABS: LARGE PLATELETS PRESENT
[2017-05-18] MEDS ORDERED: Iodixanol 320 MG/ML 100 ML BOTTLE IV ONE (07:55)
--- NOTE | 2017-05-18 08:46 | RAD ---
PROCEDURE: Radiographs of the right elbow. HISTORY: SWELLING RO FB COMPARISON: No prior. FINDINGS: BONES: Normal. No fracture. JOINTS: Normal. No osteoarthritis. SOFT TISSUES: Soft tissue swelling. No evidence of radiopaque foreign body. JOINT EFFUSION: None. OTHER FINDINGS: None. IMPRESSION: No evidence of a fracture or dislocation. No evidence of radiopaque foreign body.
--- NOTE | 2017-05-18 10:06 | CT ---
PROCEDURE: CT of the right elbow with contrast HISTORY: HO IVDA SWELLING RO ABSCESS. Right elbow swelling COMPARISON: No prior similar study available for comparison. Patient had x-ray of the right elbow done on 05/18/2017 at 5:57 TECHNIQUE: Axial and reformatted coronal and sagittal CT images of the right elbow were obtained after IV contrast administration. IV contrast dose: 100 mL Visipaque 320. Total exam D LP: 227.09 FINDINGS: There are subcutaneous inflammatory changes and a swelling at the anterior aspect of the right elbow and antecubital fossa. There is heterogeneous subcutaneous collection at the anterior aspect of the right elbow/antecubital fossa measures approximately 28 x 26 x 25 millimeter. Findings suspicious for subcutaneous abscess formation versus phlegmon. There are adjacent subcutaneous inflammatory changes. The osseous structures are grossly unremarkable. Otherwise the visualized soft tissue at the right elbow is also grossly unremarkable. IMPRESSION: Subcutaneous inflammatory changes and mild swelling at the anterior aspect of the right elbow. Subcutaneous heterogeneous round/oval shaped collection or phlegmon at the anterior aspect of the right elbow/antecubital fossa measures 28 x 27 x 25 millimeter may represent an early abscess formation versus subcutaneous phlegmon.
[2017-05-18] MEDS ORDERED: Lactated Ringer's 1,000 ML IV SCH (12:00)
--- NOTE | 2017-05-18 12:00 | CP.PCM.CON ---
<Beverly De Leon - Last Filed: 05/18/17 14:08> History of Present Illness - History of Present Illness History of Present Illness: surgery 42M w polysubstance abuse came to ED with R arm abscess. Pt reports that he did IV drugs on Sunday last week and noticed redness and swelling on R antecubital area. It is tender to palpation and symptoms has gotten worse. Denies F/C/N/V/D/CP/SOB/syncopy/bleeding/drainage. Pt went to another hospital and received ABX but the symptoms persist. Pt reports that he had cocain yesterday. U tox was positive for cocain, benzo, marijuana. WBC is 13. VSS. Surgery is consulted to evaluate for abscess. Pt denies having abscess or incision and drainage in the past. PMH: EtOH, IVDA, Polysubstance abuse. Review of Systems - Review of Systems Review of Systems: See HPI Past Patient History - Infectious Disease Hx of Infectious Diseases: None - Past Medical History & Family History Past Medical History?: Yes - Past Social History Smoking Status: Light Smoker < 10 Cigarettes Daily - CARDIAC Hx Cardiac Disorders: No Hx Hypertension: No - PULMONARY Hx Tuberculosis: No - NEUROLOGICAL HX Cerebrovascular Accident: No Hx Seizures: No - HEMATOLOGICAL/ONCOLOGICAL Hx Cancer: No Hx Human Immunodeficiency Virus (HIV): No - INTEGUMENTARY Other/Comment: CELLULITIS RIGHT ARM(FROM IV DRUG USE) - MUSCULOSKELETAL/RHEUMATOLOGICAL Hx Falls: No - GENITOURINARY/GYNECOLOGICAL Hx Sexually Transmitted Disorders: No - PSYCHIATRIC Hx Anxiety: Yes Hx Depression: Yes Hx Substance Use: Yes - SURGICAL HISTORY Hx Surgeries: No - ANESTHESIA Hx Anesthesia: No Hx Anesthesia Reactions: No Hx Malignant Hyperthermia: No Meds Allergies/Adverse Reactions: Allergies Allergy/AdvReac Type Severity Reaction Status Date / Time Penicillins Allergy Verified 05/18/17 04:56 shellfish derived Allergy Verified 05/18/17 04:56 trazodone Allergy Verified 05/18/17 04:56 - Medications Medications: Current Medications Lactated Ringer's (Lactated Ringer's) 1,000 mls @ 100 mls/hr IV .Q10H KAE Vancomycin HCl 1,000 mg/ (Sodium Chloride) 250 mls @ 166.6 mls/hr IVPB Q12H KAE Physical Exam - Constitutional Appears: No Acute Distress - Head Exam Head Exam: ATRAUMATIC, NORMAL INSPECTION, NORMOCEPHALIC - Eye Exam Eye Exam: EOMI, Normal appearance, PERRL Pupil Exam: NORMAL ACCOMODATION, PERRL - ENT Exam ENT Exam: Mucous Membranes Moist, Normal Exam - Neck Exam Neck exam: Positive for: Normal Inspection - Respiratory Exam Respiratory Exam: Clear to Auscultation Bilateral, NORMAL BREATHING PATTERN - Cardiovascular Exam Cardiovascular Exam: REGULAR RHYTHM - Extremities Exam Extremities exam: Positive for: full ROM, normal capillary refill, tenderness, pedal pulses present. Negative for: joint swelling, normal inspection, pedal edema Additional comments: R antecubital 3x4cm erythema. indurated. fluctuant. TTP. - Neurological Exam Neurological exam: Alert, CN II-XII Intact, Normal Gait, Oriented x3, Reflexes Normal - Psychiatric Exam Psychiatric exam: Normal Mood - Skin Skin Exam: Dry, Erythema, Intact, Warm Results - Vital Signs Recent Vital Signs: Last Vital Signs Temp 98.5 F 05/18/17 11:36 Pulse 63 05/18/17 11:36 Resp 16 05/18/17 11:36 BP 108/68 05/18/17 11:36 Pulse Ox 100 05/18/17 11:36 - Labs Result Diagrams: 05/18/17 06:35 05/18/17 06:35 Labs: Laboratory Results - last 24 hr 05/18/17 05/18/17 05/18/17 06:06 06:06 06:35 WBC 11.9 H D RBC 4.35 L Hgb 12.6 Hct 37.2 MCV 85.6 MCH 29.1 MCHC 33.9 RDW 13.4 Plt Count 324 MPV 7.1 L Neut % (Auto) 87.2 H Lymph % (Auto) 9.5 L Gillespie % (Auto) 2.9 Eos % (Auto) 0.1 Baso % (Auto) 0.3 Neut # 10.4 H Lymph # 1.1 Gillespie # 0.3 Eos # 0.0 Baso # 0.0 Neutrophils % (Manual) 87 H Lymphocytes % (Manual) 8 L Monocytes % (Manual) 3 Eosinophils % (Manual) 1 Basophils % (Manual) 1 Platelet Estimate Normal Large Platelets Present Ovalocytes Slight Sodium Potassium Chloride Carbon Dioxide Anion Gap BUN Creatinine Est GFR ( Amer) Est GFR (Non-Af Amer) Random Glucose Calcium Total Bilirubin AST ALT Alkaline Phosphatase Total Protein Albumin Globulin Albumin/Globulin Ratio Urine Color Yellow Urine Clarity Hazy Urine pH 5.0 Ur Specific Benton 1.028 Urine Protein 1+ H Urine Glucose (UA) Normal Urine Ketones Negative Urine Blood 3+ H Urine Nitrate Negative Urine Bilirubin Negative Urine Urobilinogen Normal Ur Leukocyte Esterase Neg Urine WBC (Auto) 2 Urine RBC (Auto) 156 H Ur Squamous Epith Cells 1 Urine Bacteria Rare Hyaline Casts 3-5 H Urine Opiates Screen Negative Urine Methadone Screen Negative Ur Barbiturates Screen Negative Ur Phencyclidine Scrn Negative Ur Amphetamines Screen Negative U Benzodiazepines Scrn Positive U Oth Cocaine Metabols Positive U Cannabinoids Screen Positive Alcohol, Quantitative 05/18/17 06:35 WBC RBC Hgb Hct MCV MCH MCHC RDW Plt Count MPV Neut % (Auto) Lymph % (Auto) Gillespie % (Auto) Eos % (Auto) Baso % (Auto) Neut # Lymph # Gillespie # Eos # Baso # Neutrophils % (Manual) Lymphocytes % (Manual) Monocytes % (Manual) Eosinophils % (Manual) Basophils % (Manual) Platelet Estimate Large Platelets Ovalocytes Sodium 141 Potassium 4.5 Chloride 100 Carbon Dioxide 28 Anion Gap 18 BUN 18 Creatinine 1.2 Est GFR ( Amer) > 60 Est GFR (Non-Af Amer) > 60 Random Glucose 117 H Calcium 9.5 Total Bilirubin 0.9 AST 26 ALT 34 Alkaline Phosphatase 70 Total Protein 7.3 Albumin 4.3 Globulin 3.0 Albumin/Globulin Ratio 1.4 Urine Color Urine Clarity Urine pH Ur Specific Benton Urine Protein Urine Glucose (UA) Urine Ketones Urine Blood Urine Nitrate Urine Bilirubin Urine Urobilinogen Ur Leukocyte Esterase Urine WBC (Auto) Urine RBC (Auto) Ur Squamous Epith Cells Urine Bacteria Hyaline Casts Urine Opiates Screen Urine Methadone Screen Ur Barbiturates Screen Ur Phencyclidine Scrn Ur Amphetamines Screen U Benzodiazepines Scrn U Oth Cocaine Metabols U Cannabinoids Screen Alcohol, Quantitative < 10 Assessment & Plan - Assessment and Plan (Free Text) Assessment: 42M w PMH of polysubstance abuse and IVDA came with R arm abscess Utox + for cocaine, Benzo, marijuana Afebrile Mild leukocytosis -OR tomorrow for I &D. -Pt had cocaine yesterday and need 24hr clearance prior to OR -ABX -Medical management DW Dr. Chou <Kody Chou B - Last Filed: 05/18/17 21:13> Meds - Medications Medications: Current Medications Benzocaine/Menthol (Cepacol Sore Throat) 1 paradise MT QID [facility] Last Admin: 05/18/17 20:05 Dose: 1 paradise Famotidine (Pepcid) 20 mg IVP Q12 [facility] Gabapentin (Neurontin) 600 mg PO TID [facility] Last Admin: 05/18/17 18:25 Dose: 600 mg Heparin Sodium (Porcine) (Heparin) 5,000 units SC Q8 KAE Hydroxyzine HCl (Atarax) 50 mg PO Q6H PRN PRN Reason: Anxiety Vancomycin HCl 1,000 mg/ (Sodium Chloride) 250 mls @ 166.6 mls/hr IVPB Q12H [facility] Last Admin: 05/18/17 12:43 Dose: 166.6 mls/hr Clindamycin Phosphate 600 mg/ (Sodium Chloride) 54 mls @ 100 mls/hr IVPB Q8 [facility] Sodium Chloride (Sodium Chloride 0.9%) 1,000 mls @ 100 mls/hr IV .Q10H [facility] Last Admin: 05/18/17 15:55 Dose: 100 mls/hr Ketorolac Tromethamine (Toradol) 30 mg IVP Q6 PRN PRN Reason: Pain, severe (8-10) Last Admin: 05/18/17 16:12 Dose: 30 mg Lorazepam (Ativan) 1 mg PO DAILY [facility] Morphine Sulfate (Morphine) 2 mg SC Q6 PRN PRN Reason: Pain, moderate (4-7) Quetiapine Fumarate (Seroquel) 200 mg PO HS [facility] Trazodone HCl (Desyrel) 100 mg PO HS PRN PRN Reason: Insomnia Results - Vital Signs Recent Vital Signs: Last Vital Signs Temp 97.9 F 05/18/17 15:00 Pulse 71 05/18/17 15:00 Resp 20 05/18/17 15:00 BP 112/61 05/18/17 15:00 Pulse Ox 97 05/18/17 15:00 - Labs Result Diagrams: 05/18/17 06:35 05/18/17 06:35 Labs: Laboratory Results - last 24 hr 05/18/17 05/18/17 05/18/17 06:06 06:06 06:35 WBC 11.9 H D RBC 4.35 L Hgb 12.6 Hct 37.2 MCV 85.6 MCH 29.1 MCHC 33.9 RDW 13.4 Plt Count 324 MPV 7.1 L Neut % (Auto) 87.2 H Lymph % (Auto) 9.5 L Gillespie % (Auto) 2.9 Eos % (Auto) 0.1 Baso % (Auto) 0.3 Neut # 10.4 H Lymph # 1.1 Gillespie # 0.3 Eos # 0.0 Baso # 0.0 Neutrophils % (Manual) 87 H Lymphocytes % (Manual) 8 L Monocytes % (Manual) 3 Eosinophils % (Manual) 1 Basophils % (Manual) 1 Platelet Estimate Normal Large Platelets Present Ovalocytes Slight Sodium Potassium Chloride Carbon Dioxide Anion Gap BUN Creatinine Est GFR ( Amer) Est GFR (Non-Af Amer) Random Glucose Calcium Total Bilirubin AST ALT Alkaline Phosphatase Total Protein Albumin Globulin Albumin/Globulin Ratio Urine Color Yellow Urine Clarity Hazy Urine pH 5.0 Ur Specific Benton 1.028 Urine Protein 1+ H Urine Glucose (UA) Normal Urine Ketones Negative Urine Blood 3+ H Urine Nitrate Negative Urine Bilirubin Negative Urine Urobilinogen Normal Ur Leukocyte Esterase Neg Urine WBC (Auto) 2 Urine RBC (Auto) 156 H Ur Squamous Epith Cells 1 Urine Bacteria Rare Hyaline Casts 3-5 H Urine Opiates Screen Negative Urine Methadone Screen Negative Ur Barbiturates Screen Negative Ur Phencyclidine Scrn Negative Ur Amphetamines Screen Negative U Benzodiazepines Scrn Positive U Oth Cocaine Metabols Positive U Cannabinoids Screen Positive Alcohol, Quantitative 05/18/17 06:35 WBC RBC Hgb Hct MCV MCH MCHC RDW Plt Count MPV Neut % (Auto) Lymph % (Auto) Gillespie % (Auto) Eos % (Auto) Baso % (Auto) Neut # Lymph # Gillespie # Eos # Baso # Neutrophils % (Manual) Lymphocytes % (Manual) Monocytes % (Manual) Eosinophils % (Manual) Basophils % (Manual) Platelet Estimate Large Platelets Ovalocytes Sodium 141 Potassium 4.5 Chloride 100 Carbon Dioxide 28 Anion Gap 18 BUN 18 Creatinine 1.2 Est GFR ( Amer) > 60 Est GFR (Non-Af Amer) > 60 Random Glucose 117 H Calcium 9.5 Total Bilirubin 0.9 AST 26 ALT 34 Alkaline Phosphatase 70 Total Protein 7.3 Albumin 4.3 Globulin 3.0 Albumin/Globulin Ratio 1.4 Urine Color Urine Clarity Urine pH Ur Specific Benton Urine Protein Urine Glucose (UA) Urine Ketones Urine Blood Urine Nitrate Urine Bilirubin Urine Urobilinogen Ur Leukocyte Esterase Urine WBC (Auto) Urine RBC (Auto) Ur Squamous Epith Cells Urine Bacteria Hyaline Casts Urine Opiates Screen Urine Methadone Screen Ur Barbiturates Screen Ur Phencyclidine Scrn Ur Amphetamines Screen U Benzodiazepines Scrn U Oth Cocaine Metabols U Cannabinoids Screen Alcohol, Quantitative < 10 Attending/Attestation - Attestation I have personally seen and examined this patient.: Yes I have fully participated in the care of the patient.: Yes I have reviewed all pertinent clinical information: Yes Notes (Text): 05/18/17 21:10 Pt was seen and examined at bedside Agree with above note and assessment Pt with Active IVDA and Right Anticubital fossa abscess Pt had Coccaine today at 4 am Pt needs atleast 24 hours clearance c.w IV antibiotics Plan d.w pt in detail Risk and benefit explained in detail.
--- NOTE | 2017-05-18 14:35 | PCM.PSYCH ---
Initial Psychiatric Evaluation - Initial Psychiatric Evaluation Type of Admission: Voluntary Legal Status: Capacity Chief Complaint (in patient's own words): "I am nervous but not suicidal" History of Present Illness and Precipitating Events: The patient is seen, chart reviewed and case discussed. He is known from a recent detox admission Consult was requested for his substance use. 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 He had used iv heroin for the past 13 years. However, he admits to using cocaine more heavily now and he uses cocaine since early teens, 2-3 mg a day by snorting. He drinks alcohol but "not too much" and smokes cigarettes half pack per day. He denies other drugs. He is prescribed 1 mg/d ativan, risks discussed. He had three detoxes and he has been to rehabilitation 4 or 5 times. He denies SI now but had some vague thoughts on admission. He claims he was tsressed bd=c he was high and also thinking about his GF and his own stressors. Past psych history: Denies Family psych history: Denies Medical history: Denies Current Medications: Active Medications Generic Name Dose Route Start Last Admin Trade Name Freq PRN Reason Stop Dose Admin Gabapentin 600 mg 05/18/17 18:00 Neurontin PO TID KAE Hydroxyzine HCl 50 mg 05/18/17 14:32 Atarax PO Q6H PRN Anxiety Lactated Ringer's 1,000 mls @ 100 mls/hr 05/18/17 12:00 05/18/17 12:38 Lactated Ringer's IV 100 mls/hr .Q10H KAE Administration Vancomycin HCl 1,000 mg/ 250 mls @ 166.6 mls/hr 05/18/17 12:00 05/18/17 12:43 Sodium Chloride IVPB 166.6 mls/hr Q12H KAE Administration Lorazepam 1 mg 05/19/17 10:00 Ativan PO DAILY KAE Quetiapine Fumarate 200 mg 05/18/17 22:00 Seroquel PO HS KAE Trazodone HCl 100 mg 05/18/17 14:32 Desyrel PO HS PRN Insomnia Past Psychiatric History - Past Psychiatric History Previous Treatment History: None Pertinent Medical Hx (Current Medical&Sleep Prob, Allergies): Allergies Allergy/AdvReac Type Severity Reaction Status Date / Time Penicillins Allergy Verified 05/18/17 04:56 shellfish derived Allergy Verified 05/18/17 04:56 trazodone Allergy Verified 05/18/17 04:56 QUEtiapine [Seroquel] 200 mg PO HS #30 tab 03/09/17 Clindamycin [Cleocin] 300 mg PO Q6H 05/18/17 cloNIDine [clonidine HCl] 0.2 mg PO DAILY 05/18/17 hydrOXYzine Pamoate [Vistaril] 25 mg PO Q12H PRN 05/18/17 Review of Systems - Neurological Neurological: UNREMARKABLE - Psychiatric Psychiatric: Abnormal Sleep Pattern, Anxiety, Depression, Difficulty Concentrating. absent: Hallucinations, Homicidal Ideation, Suicidal Ideation Mental Status Examination - Personal Presentation Personal Presentation: Looks stated age - Affect Affect: Constricted - Motor Activity Motor Activity: Calm - Speech Speech: Organized - Mood Mood: Depressed, Anxious - Formal Thought Process Formal Thought Process: No Impairment - Cognitive Functions Orientation: Person, Place, Situation, Time Sensorium: Alert Attention/Concentration: Attentive, Easily distracted Estimate of Intelligence: Average Memory: Recent intact, as evidence by: Ability to recall events of the day, Remote intact, as evidenced by: Abilit to recall sig. life events - Risk Risk: Withdrawal, Diminished functioning - Strength & Assets Inventory Strength & Assets Inventory: Cooperative - Limitations Limitations: Other DSM 5 DX - DSM 5 DSM 5 Diagnosis: Opioid dependence on maintenance treatment Cocaine use d/o - severe Alcohol use d/o - moderate Major depression, moderate - Recommended/Plan of Treatment Treatment Recommendations and Plan of Treatment: Continue vivtrol outsside Ativan 1 mg As needed medications Gabapentin for augmentation Supportive therapy and psychoeducation [place] for abstinence CBT for relapse prevention Lexapro offered but wants to cont seroquel Refer to IOP Attend self-help groups as well 34 min
[2017-05-18] MEDS ORDERED: HYDROXYZINE PAMOATE 25 MG PO PRN (14:56)
[2017-05-18] MEDS: Sodium Chloride 0.9% 1,000 ML IV SCH (15:55)
[2017-05-18] MEDS: Benzocaine/Menthol (Cepacol) Lozenge MT SCH ×2 (20:05→23:08)
--- NOTE | 2017-05-18 23:33 | CP.PCM.HP ---
History of Present Illness - History of Present Illness History of Present Illness: 42M w polysubstance abuse came to ED with R arm abscess. Pt reports that he did IV drugs on Sunday last week and noticed redness and swelling on R antecubital area. It is tender to palpation and symptoms has gotten worse. Denies F/C/N/V/D/CP/SOB/syncopy/bleeding/drainage. Pt went to another hospital and received ABX but the symptoms persist. Pt reports that he had cocain yesterday. U tox was positive for cocain, benzo, marijuana. WBC is 13. VSS. Surgery is consulted to evaluate for abscess. Pt denies having abscess or incision and drainage in the past. PMH: EtOH, IVDA, Polysubstance abuse. Past Patient History - Infectious Disease Hx of Infectious Diseases: None - Past Medical History & Family History Past Medical History?: Yes - Past Social History Smoking Status: Light Smoker < 10 Cigarettes Daily - CARDIAC Hx Cardiac Disorders: No Hx Hypertension: No - PULMONARY Hx Tuberculosis: No - NEUROLOGICAL HX Cerebrovascular Accident: No Hx Seizures: No - HEMATOLOGICAL/ONCOLOGICAL Hx Cancer: No Hx Human Immunodeficiency Virus (HIV): No - INTEGUMENTARY Other/Comment: CELLULITIS RIGHT ARM(FROM IV DRUG USE) - MUSCULOSKELETAL/RHEUMATOLOGICAL Hx Falls: No - GENITOURINARY/GYNECOLOGICAL Hx Sexually Transmitted Disorders: No - PSYCHIATRIC Hx Anxiety: Yes Hx Depression: Yes Hx Substance Use: Yes - SURGICAL HISTORY Hx Surgeries: No - ANESTHESIA Hx Anesthesia: No Hx Anesthesia Reactions: No Hx Malignant Hyperthermia: No Meds Allergies/Adverse Reactions: Allergies Allergy/AdvReac Type Severity Reaction Status Date / Time Penicillins Allergy Verified 05/18/17 04:56 shellfish derived Allergy Verified 05/18/17 04:56 trazodone Allergy Verified 05/18/17 04:56 Results - Vital Signs Recent Vital Signs: Last Vital Signs Temp 99.8 F H 05/18/17 21:10 Pulse 77 05/18/17 21:10 Resp 19 05/18/17 21:10 BP 112/55 L 05/18/17 21:10 Pulse Ox 100 05/18/17 21:10 - Labs Result Diagrams: 05/18/17 06:35 05/18/17 06:35 Labs: Laboratory Results - last 24 hr 05/18/17 05/18/17 05/18/17 06:06 06:06 06:35 WBC 11.9 H D RBC 4.35 L Hgb 12.6 Hct 37.2 MCV 85.6 MCH 29.1 MCHC 33.9 RDW 13.4 Plt Count 324 MPV 7.1 L Neut % (Auto) 87.2 H Lymph % (Auto) 9.5 L Elliott % (Auto) 2.9 Eos % (Auto) 0.1 Baso % (Auto) 0.3 Neut # 10.4 H Lymph # 1.1 Elliott # 0.3 Eos # 0.0 Baso # 0.0 Neutrophils % (Manual) 87 H Lymphocytes % (Manual) 8 L Monocytes % (Manual) 3 Eosinophils % (Manual) 1 Basophils % (Manual) 1 Platelet Estimate Normal Large Platelets Present Ovalocytes Slight Sodium Potassium Chloride Carbon Dioxide Anion Gap BUN Creatinine Est GFR ( Amer) Est GFR (Non-Af Amer) Random Glucose Calcium Total Bilirubin AST ALT Alkaline Phosphatase Total Protein Albumin Globulin Albumin/Globulin Ratio Urine Color Yellow Urine Clarity Hazy Urine pH 5.0 Ur Specific Nursery 1.028 Urine Protein 1+ H Urine Glucose (UA) Normal Urine Ketones Negative Urine Blood 3+ H Urine Nitrate Negative Urine Bilirubin Negative Urine Urobilinogen Normal Ur Leukocyte Esterase Neg Urine WBC (Auto) 2 Urine RBC (Auto) 156 H Ur Squamous Epith Cells 1 Urine Bacteria Rare Hyaline Casts 3-5 H Urine Opiates Screen Negative Urine Methadone Screen Negative Ur Barbiturates Screen Negative Ur Phencyclidine Scrn Negative Ur Amphetamines Screen Negative U Benzodiazepines Scrn Positive U Oth Cocaine Metabols Positive U Cannabinoids Screen Positive Alcohol, Quantitative 05/18/17 06:35 WBC RBC Hgb Hct MCV MCH MCHC RDW Plt Count MPV Neut % (Auto) Lymph % (Auto) Elliott % (Auto) Eos % (Auto) Baso % (Auto) Neut # Lymph # Elliott # Eos # Baso # Neutrophils % (Manual) Lymphocytes % (Manual) Monocytes % (Manual) Eosinophils % (Manual) Basophils % (Manual) Platelet Estimate Large Platelets Ovalocytes Sodium 141 Potassium 4.5 Chloride 100 Carbon Dioxide 28 Anion Gap 18 BUN 18 Creatinine 1.2 Est GFR ( Amer) > 60 Est GFR (Non-Af Amer) > 60 Random Glucose 117 H Calcium 9.5 Total Bilirubin 0.9 AST 26 ALT 34 Alkaline Phosphatase 70 Total Protein 7.3 Albumin 4.3 Globulin 3.0 Albumin/Globulin Ratio 1.4 Urine Color Urine Clarity Urine pH Ur Specific Nursery Urine Protein Urine Glucose (UA) Urine Ketones Urine Blood Urine Nitrate Urine Bilirubin Urine Urobilinogen Ur Leukocyte Esterase Urine WBC (Auto) Urine RBC (Auto) Ur Squamous Epith Cells Urine Bacteria Hyaline Casts Urine Opiates Screen Urine Methadone Screen Ur Barbiturates Screen Ur Phencyclidine Scrn Ur Amphetamines Screen U Benzodiazepines Scrn U Oth Cocaine Metabols U Cannabinoids Screen Alcohol, Quantitative < 10
[2017-05-19] MEDS: Sodium Chloride 0.9% 1,000 ML IV SCH ×5 (01:24→21:30)
--- NOTE | 2017-05-19 01:32 | CARD ---
APPROVED REPORT EKG Measurement Heart [id number] <Conclusion> Normal sinus rhythm Normal ECG
[2017-05-19] MEDS ORDERED: Midazolam 2 MG/2 ML VIAL ONE (08:42)
[2017-05-19] MEDS ORDERED: Propofol 10 mg/ml Inj (20 ML) ONE ×2 (08:42→10:26)
[2017-05-19] MEDS ORDERED: Lidocaine Hydrochloride 5 ML INJ ONE (08:43)
[2017-05-19] MEDS ORDERED: Lactated Ringer's 1,000 ML IV ONE ×2 (09:06)
[2017-05-19] MEDS ORDERED: Bupivacaine 0.5%/Epi 1:200,000 (10 ML SOL) ONE (09:31)
[2017-05-19] MEDS ORDERED: Lidocaine 1% Inj (20ml) ONE (09:31)
[2017-05-19] MEDS ORDERED: Morphine 4 MG/ML VIAL ONE (10:24)
[2017-05-19] MEDS: Benzocaine/Menthol (Cepacol) Lozenge MT SCH ×4 (10:29→21:40)
[2017-05-19] MEDS ORDERED: HYDROmorphone 0.5 mg/0.5 ml ISec IVP PRN (10:42)
--- NOTE | 2017-05-19 11:06 | PCM.SURG1 ---
Surgeon's Initial Post Op Note - Surgeon's Notes Surgeon: Dr. Chou Clinical Biochemist: Dr. Reyes PGY-3 Type of Anesthesia: General LMA, Local Pre-Operative Diagnosis: Right forearm abscess Operative Findings: Right forearm abscess with purulent drainage Post-Operative Diagnosis: Right forearm abscess Operation Performed: Incision and drainage of right forearm abscess Specimen/Specimens Removed: debrided tissue, purulent material Estimated Blood Loss: EBL {In ML}: 10 Blood Products Given: N/A Drains Used: No Drains Post-Op Condition: Good Date of Surgery/Procedure: 05/19/17 Time of Surgery/Procedure: 10:00
--- NOTE | 2017-05-19 15:56 | US ---
Renal ultrasound History: Hematuria. Comparison: None available. Technique: Real-time sonography was performed through the kidneys. Findings: Right kidney: 12.5 x 3.9 x 5.2 centimeters. 3 millimeter echogenic foci in the lower pole of the right kidney suggestive for a nonobstructive calculus. No hydronephrosis. Left Kidney: 11.3 x 4.7 x 4.8 centimeters. No calculi or hydronephrosis. Visualized aorta is preserved. Underdistended urinary bladder limits evaluation. Impression: 3 millimeter nonobstructive lower pole right renal calculus. Limited evaluation of the urinary bladder.
[2017-05-20 00:51] VITALS: RESP 20
--- NOTE | 2017-05-20 03:08 | OP ---
PROCEDURE DATE: 05/19/2017 PREOPERATIVE DIAGNOSES: 1. Right antecubital fossa abscess. 2. Active IV drug abuse. POSTOPERATIVE DIAGNOSES: 1. Right antecubital fossa abscess. 2. Active IV drug abuse. PROCEDURE DONE: 1. Incision and drainage of right antecubital fossa abscess. 2. Excisional debridement of the abscess cavity. SURGEON: The procedure was done by mo Dr. Chou. RELIEF PHARMACIST: Dr. Reyes, PGY-3 resident. ANESTHESIA: General anesthesia with LMA. ESTIMATED BLOOD LOSS: Around 10 mL. DRAIN: None. PATHOLOGY: The pus was sent for the pathology. COMPLICATIONS: None. INTRAOPERATIVE FINDINGS: The patient had approximately 4 x 3 cm abscess cavity of antecubital fossa. DESCRIPTION OF PROCEDURE: On intraoperative steps, this is a 42-year-old male who was diagnosed with right antecubital fossa abscess and the patient was diagnosed with active IV drug abuse and the patient was consented for incision and drainage and debridement, brought to the OR, and placed supine on the operating table. After induction of the anesthesia, the right arm was prepped and draped in usual sterile fashion and after injecting local anesthesia, the transverse incision was made after incising the skin and subcutaneous tissue. The abscess cavity was entered and pus was taken for the culture. Abscess cavity was drained and the debridement of the wall was done and abscess cavity was packed with iodoform packing and dry sterile dressing was applied. The patient tolerated the procedure well. Count of the instruments and gauze was correct. There was no apparent complication. The patient was reversed from anesthesia and sent to the postanesthesia care unit in stable condition. Kody Chou MD [facility]
[2017-05-20 06:32] LABS: RBC URINE 1 /hpf (0-3); URINE BILIRUBIN NEGATIVE (NEGATIVE); URINE BLOOD 1+ (NEGATIVE); URINE COLOR Yellow (YELLOW); URINE GLUCOSE (UA) NORMAL (Normal); URINE KETONE NEGATIVE (NEGATIVE); URINE LEUKOCYTE ESTERASE NEG Leu/uL (Negative); URINE PROTEIN NEGATIVE (NEGATIVE); URINE UROBILINOGEN NORMAL mg/dL (0.2-1.0); WBC URINE < 1 /hpf (0-5)
[2017-05-20] MEDS: Sodium Chloride 0.9% 1,000 ML IV SCH ×2 (07:11→17:30)
[2017-05-20] MEDS: Benzocaine/Menthol (Cepacol) Lozenge MT SCH ×4 (09:58→21:00)
--- NOTE | 2017-05-20 10:40 | CP.PCM.PN ---
Subjective - Date & Time of Evaluation Date of Evaluation: 05/19/17 Time of Evaluation: 21:00 - Subjective Subjective: Pt is seen and examined, s/p Incision and drainage of right forearm abscess Objective - Vital Signs/Intake and Output Vital Signs (last 24 hours): Temp Pulse Resp BP Pulse Ox 98 F 76 20 137/89 100 05/20/17 08:07 05/20/17 08:07 05/20/17 08:07 05/20/17 08:07 05/20/17 08:07 Intake and Output: 05/20/17 05/20/17 06:59 18:59 Intake Total 1050 Balance 1050 - Medications Medications: Current Medications Benzocaine/Menthol (Cepacol Sore Throat) 1 paradise MT QID [facility] Last Admin: 05/20/17 09:58 Dose: Not Given Famotidine (Pepcid) 20 mg IVP Q12 [facility] Last Admin: 05/20/17 09:57 Dose: 20 mg Gabapentin (Neurontin) 600 mg PO TID [facility] Last Admin: 05/20/17 09:57 Dose: 600 mg Heparin Sodium (Porcine) (Heparin) 5,000 units SC Q8 [facility] Last Admin: 05/20/17 05:50 Dose: 5,000 units Hydroxyzine HCl (Atarax) 50 mg PO Q6H PRN PRN Reason: Anxiety Vancomycin HCl 1,000 mg/ (Sodium Chloride) 250 mls @ 166.6 mls/hr IVPB Q12H [facility] Last Admin: 05/20/17 00:02 Dose: 166.6 mls/hr Clindamycin Phosphate 600 mg/ (Sodium Chloride) 54 mls @ 100 mls/hr IVPB Q8 [facility] Last Admin: 05/20/17 06:03 Dose: 100 mls/hr Sodium Chloride (Sodium Chloride 0.9%) 1,000 mls @ 100 mls/hr IV .Q10H [facility] Last Admin: 05/20/17 07:11 Dose: 100 mls/hr Ketorolac Tromethamine (Toradol) 30 mg IVP Q6 PRN PRN Reason: Pain, severe (8-10) Last Admin: 05/18/17 16:12 Dose: 30 mg Lorazepam (Ativan) 1 mg PO DAILY [facility] Last Admin: 05/20/17 09:58 Dose: 1 mg Morphine Sulfate (Morphine) 4 mg IVP Q4 PRN PRN Reason: Pain, moderate (4-7) Ondansetron HCl (Zofran Inj) 4 mg IVP Q4 PRN PRN Reason: Nausea/Vomiting Quetiapine Fumarate (Seroquel) 200 mg PO HS [facility] Last Admin: 05/19/17 21:33 Dose: 200 mg - Labs Labs: 05/18/17 06:35 05/18/17 06:35 - Constitutional Appears: Well - Head Exam Head Exam: ATRAUMATIC, NORMAL INSPECTION, NORMOCEPHALIC - Eye Exam Eye Exam: EOMI, Normal appearance, PERRL Pupil Exam: NORMAL ACCOMODATION, PERRL - ENT Exam ENT Exam: Mucous Membranes Moist - Neck Exam Neck Exam: Full ROM - Neurological Exam Neurological Exam: Alert, Awake, CN II-XII Intact, Normal Gait, Oriented x3 Assessment and Plan (1) Cellulitis Status: Acute (2) Drug dependence Status: Acute (3) Opiate dependence Status: Acute (4) Alcohol dependence Status: Acute
--- NOTE | 2017-05-20 10:42 | CP.PCM.PN ---
Subjective - Date & Time of Evaluation Date of Evaluation: 05/20/17 Time of Evaluation: 21:00 Objective - Vital Signs/Intake and Output Vital Signs (last 24 hours): Temp Pulse Resp BP Pulse Ox 98 F 76 20 137/89 100 05/20/17 08:07 05/20/17 08:07 05/20/17 08:07 05/20/17 08:07 05/20/17 08:07 Intake and Output: 05/20/17 05/20/17 06:59 18:59 Intake Total 1050 Balance 1050 - Medications Medications: Current Medications Benzocaine/Menthol (Cepacol Sore Throat) 1 paradise MT QID [facility] Last Admin: 05/20/17 09:58 Dose: Not Given Famotidine (Pepcid) 20 mg IVP Q12 [facility] Last Admin: 05/20/17 09:57 Dose: 20 mg Gabapentin (Neurontin) 600 mg PO TID [facility] Last Admin: 05/20/17 09:57 Dose: 600 mg Heparin Sodium (Porcine) (Heparin) 5,000 units SC Q8 [facility] Last Admin: 05/20/17 05:50 Dose: 5,000 units Hydroxyzine HCl (Atarax) 50 mg PO Q6H PRN PRN Reason: Anxiety Vancomycin HCl 1,000 mg/ (Sodium Chloride) 250 mls @ 166.6 mls/hr IVPB Q12H [facility] Last Admin: 05/20/17 00:02 Dose: 166.6 mls/hr Clindamycin Phosphate 600 mg/ (Sodium Chloride) 54 mls @ 100 mls/hr IVPB Q8 [facility] Last Admin: 05/20/17 06:03 Dose: 100 mls/hr Sodium Chloride (Sodium Chloride 0.9%) 1,000 mls @ 100 mls/hr IV .Q10H [facility] Last Admin: 05/20/17 07:11 Dose: 100 mls/hr Ketorolac Tromethamine (Toradol) 30 mg IVP Q6 PRN PRN Reason: Pain, severe (8-10) Last Admin: 05/18/17 16:12 Dose: 30 mg Lorazepam (Ativan) 1 mg PO DAILY [facility] Last Admin: 05/20/17 09:58 Dose: 1 mg Morphine Sulfate (Morphine) 4 mg IVP Q4 PRN PRN Reason: Pain, moderate (4-7) Ondansetron HCl (Zofran Inj) 4 mg IVP Q4 PRN PRN Reason: Nausea/Vomiting Quetiapine Fumarate (Seroquel) 200 mg PO HS [facility] Last Admin: 05/19/17 21:33 Dose: 200 mg - Labs Labs: 05/18/17 06:35 05/18/17 06:35 Assessment and Plan (1) Cellulitis Status: Acute (2) Drug dependence Status: Acute (3) Opiate dependence Status: Acute (4) Alcohol dependence Status: Acute
--- NOTE | 2017-05-20 10:53 | CP.PCM.PN ---
<Urmila Wadsworth - Last Filed: 05/20/17 10:50> Subjective - Date & Time of Evaluation Date of Evaluation: 05/20/17 Time of Evaluation: 07:00 - Subjective Subjective: General Surgery Dr. Chou Pt S&E @bedside. Pt underwent I&D of R antecubital abscess yesterday. Pt tolerated the procedure well w/ no complications. NAEO. c/o severe pain. denies F/C, N/V. tolerating diet Objective - Vital Signs/Intake and Output Vital Signs (last 24 hours): Temp Pulse Resp BP Pulse Ox 98 F 76 20 137/89 100 05/20/17 08:07 05/20/17 08:07 05/20/17 08:07 05/20/17 08:07 05/20/17 08:07 Intake and Output: 05/20/17 05/20/17 06:59 18:59 Intake Total 1050 Balance 1050 - Medications Medications: Current Medications Benzocaine/Menthol (Cepacol Sore Throat) 1 paradise MT QID [facility] Last Admin: 05/20/17 09:58 Dose: Not Given Famotidine (Pepcid) 20 mg IVP Q12 [facility] Last Admin: 05/20/17 09:57 Dose: 20 mg Gabapentin (Neurontin) 600 mg PO TID [facility] Last Admin: 05/20/17 09:57 Dose: 600 mg Heparin Sodium (Porcine) (Heparin) 5,000 units SC Q8 [facility] Last Admin: 05/20/17 05:50 Dose: 5,000 units Hydroxyzine HCl (Atarax) 50 mg PO Q6H PRN PRN Reason: Anxiety Vancomycin HCl 1,000 mg/ (Sodium Chloride) 250 mls @ 166.6 mls/hr IVPB Q12H [facility] Last Admin: 05/20/17 00:02 Dose: 166.6 mls/hr Clindamycin Phosphate 600 mg/ (Sodium Chloride) 54 mls @ 100 mls/hr IVPB Q8 [facility] Last Admin: 05/20/17 06:03 Dose: 100 mls/hr Sodium Chloride (Sodium Chloride 0.9%) 1,000 mls @ 100 mls/hr IV .Q10H [facility] Last Admin: 05/20/17 07:11 Dose: 100 mls/hr Ketorolac Tromethamine (Toradol) 30 mg IVP Q6 PRN PRN Reason: Pain, severe (8-10) Last Admin: 05/18/17 16:12 Dose: 30 mg Lorazepam (Ativan) 1 mg PO DAILY [facility] Last Admin: 05/20/17 09:58 Dose: 1 mg Morphine Sulfate (Morphine) 4 mg IVP Q4 PRN PRN Reason: Pain, moderate (4-7) Ondansetron HCl (Zofran Inj) 4 mg IVP Q4 PRN PRN Reason: Nausea/Vomiting Quetiapine Fumarate (Seroquel) 200 mg PO [facility] Last Admin: 05/19/17 21:33 Dose: 200 mg - Labs Labs: 05/18/17 06:35 05/18/17 06:35 - Constitutional Appears: Non-toxic, No Acute Distress - Head Exam Head Exam: NORMAL INSPECTION - Eye Exam Eye Exam: Normal appearance - ENT Exam ENT Exam: Mucous Membranes Moist - Respiratory Exam Respiratory Exam: NORMAL BREATHING PATTERN. absent: Accessory Muscle Use, Respiratory Distress - GI/Abdominal Exam GI & Abdominal Exam: Soft. absent: Distended, Tenderness - Extremities Exam Extremities Exam: Full ROM Additional comments: R antecubital dressing c/d/i packing in place - Neurological Exam Neurological Exam: Alert, Awake, Oriented x3 - Psychiatric Exam Psychiatric exam: Normal Affect, Normal Mood - Skin Skin Exam: Dry, Intact, Warm Additional comments: multiple tattoos Assessment and Plan - Assessment and Plan (Free Text) Assessment: 42 y/o M IVDA w/ R antecubital abscess POD#1 s/p I&D - daily packing changes by surgical team - pain management - cont IV Abx per ID - continue medicla management Pt discussed w/ Dr. Effie Wadsworth DO PGY2 <Kody Chou - Last Filed: 05/23/17 11:45> Objective - Vital Signs/Intake and Output Vital Signs (last 24 hours): Temp Pulse Resp BP Pulse Ox 97.7 F 82 20 126/76 100 05/21/17 09:23 05/21/17 09:23 05/21/17 09:23 05/21/17 09:23 05/21/17 09:23 - Labs Labs: 05/18/17 06:35 05/18/17 06:35 Attending/Attestation - Attestation I have fully participated in the care of the patient.: Yes I have reviewed all pertinent clinical information, including history, physical exam and plan: Yes Notes (Text): 05/23/17 11:44 Pt is s/p I & D of right antecubital fossa abscess c/w IV antibiotics Local wound care Po analgesics prn f/u C/S
[2017-05-20] MEDS: Morphine 4 MG/ML VIAL IVP PRN ×3 (12:03→21:13)
[2017-05-21] MEDS: Sodium Chloride 0.9% 1,000 ML IV SCH ×2 (04:00→13:08)
[2017-05-21] MEDS: Morphine 4 MG/ML VIAL IVP PRN ×2 (05:23→09:36)
[2017-05-21 09:24] VITALS: BP 126/76; PULSE 82; TEMP 97.7; O2SAT 100
--- NOTE | 2017-05-21 09:29 | CP.PCM.PN ---
<Narcisa Abbott - Last Filed: 05/21/17 09:26> Subjective - Date & Time of Evaluation Date of Evaluation: 05/21/17 Time of Evaluation: : - Subjective Subjective: General Surgery - Dr. Chou Pt S&E. BRYANO. Pt denies any complaints, he states pain from site of former abscess is greatly relieved s/p I&D. Packing was removed at bedside. Pt tolerated well. Sterile gauze dressing applied. No F/C, SOB/Cp. Objective - Vital Signs/Intake and Output Vital Signs (last 24 hours): Temp Pulse Resp BP Pulse Ox 97.7 F 82 20 126/76 100 05/21/17 09:23 05/21/17 09:23 05/21/17 09:23 05/21/17 09:23 05/21/17 09:23 Intake and Output: 05/21/17 05/21/17 06:59 18:59 Intake Total 2049 Balance 2049 - Medications Medications: Current Medications Benzocaine/Menthol (Cepacol Sore Throat) 1 paradise MT QID [facility] Last Admin: 05/20/17 21:00 Dose: Not Given Famotidine (Pepcid) 20 mg IVP Q12 [facility] Last Admin: 05/20/17 21:02 Dose: 20 mg Gabapentin (Neurontin) 600 mg PO TID [facility] Last Admin: 05/20/17 18:00 Dose: 600 mg Heparin Sodium (Porcine) (Heparin) 5,000 units SC Q8 [facility] Last Admin: 05/21/17 05:38 Dose: 5,000 units Hydroxyzine HCl (Atarax) 50 mg PO Q6H PRN PRN Reason: Anxiety Vancomycin HCl 1,000 mg/ (Sodium Chloride) 250 mls @ 166.6 mls/hr IVPB Q12H [facility] Last Admin: 05/21/17 00:08 Dose: 166.6 mls/hr Clindamycin Phosphate 600 mg/ (Sodium Chloride) 54 mls @ 100 mls/hr IVPB Q8 [facility] Last Admin: 05/21/17 06:02 Dose: 100 mls/hr Sodium Chloride (Sodium Chloride 0.9%) 1,000 mls @ 100 mls/hr IV .Q10H [facility] Last Admin: 05/21/17 04:00 Dose: 100 mls/hr Ketorolac Tromethamine (Toradol) 30 mg IVP Q6 PRN PRN Reason: Pain, severe (8-10) Last Admin: 05/18/17 16:12 Dose: 30 mg Lorazepam (Ativan) 1 mg PO DAILY [facility] Last Admin: 05/20/17 09:58 Dose: 1 mg Morphine Sulfate (Morphine) 4 mg IVP Q4 PRN PRN Reason: Pain, moderate (4-7) Last Admin: 05/21/17 05:23 Dose: 4 mg Ondansetron HCl (Zofran Inj) 4 mg IVP Q4 PRN PRN Reason: Nausea/Vomiting Quetiapine Fumarate (Seroquel) 200 mg PO HS [facility] Last Admin: 05/20/17 21:02 Dose: 200 mg - Labs Labs: 05/18/17 06:35 05/18/17 06:35 - Constitutional Appears: No Acute Distress - Head Exam Head Exam: ATRAUMATIC, NORMAL INSPECTION, NORMOCEPHALIC - Eye Exam Eye Exam: Normal appearance - Respiratory Exam Respiratory Exam: NORMAL BREATHING PATTERN. absent: Respiratory Distress - Extremities Exam Additional comments: R forearm abscess s/p I&D, mild induration and erythema around site, no fluctuance, packing removed and open to drain, sterile gauze dressing applied - Neurological Exam Neurological Exam: Alert, Oriented x3 - Psychiatric Exam Psychiatric exam: Normal Affect, Normal Mood - Skin Skin Exam: Dry, Intact Assessment and Plan - Assessment and Plan (Free Text) Assessment: 42 y/o M IVDA w/ R antecubital abscess POD#2 s/p I&D - Packing removed - Continue ABX as per primary - Daily dressing changes with dry gauze and island dressing, patient instructed for self-dressing care and discussed w/ nursing - No further surgical intervention - Surgery will sign off, reconsult PRN Ward Abbott PGY3 <Kody Chou - Last Filed: 05/23/17 11:52> Objective - Vital Signs/Intake and Output Vital Signs (last 24 hours): Temp Pulse Resp BP Pulse Ox 97.7 F 82 20 126/76 100 05/21/17 09:23 05/21/17 09:23 05/21/17 09:23 05/21/17 09:23 05/21/17 09:23 - Labs Labs: 05/18/17 06:35 05/18/17 06:35 Attending/Attestation - Attestation I have personally seen and examined this patient.: Yes I have fully participated in the care of the patient.: Yes I have reviewed all pertinent clinical information, including history, physical exam and plan: Yes Notes (Text): 05/23/17 11:51 Pt was seen and examined at bedside Agree with above note and assessment f/u as out pt.
[2017-05-21] MEDS: Benzocaine/Menthol (Cepacol) Lozenge MT SCH ×2 (09:35→13:07)
--- NOTE | 2017-05-21 17:02 | CP.PCM.PN ---
Subjective - Date & Time of Evaluation Date of Evaluation: 05/21/17 Time of Evaluation: 11:00 - Subjective Subjective: Alert, awake, no acute pain, NAD. Objective - Vital Signs/Intake and Output Vital Signs (last 24 hours): Temp Pulse Resp BP Pulse Ox 97.7 F 82 20 126/76 100 05/21/17 09:23 05/21/17 09:23 05/21/17 09:23 05/21/17 09:23 05/21/17 09:23 Intake and Output: 05/21/17 05/21/17 06:59 18:59 Intake Total 2049 1099 Balance 2049 1099 - Medications Medications: Current Medications Benzocaine/Menthol (Cepacol Sore Throat) 1 paradise MT QID [facility] Last Admin: 05/21/17 13:07 Dose: Not Given Famotidine (Pepcid) 20 mg IVP Q12 [facility] Last Admin: 05/21/17 09:34 Dose: 20 mg Gabapentin (Neurontin) 600 mg PO TID [facility] Last Admin: 05/21/17 15:00 Dose: 600 mg Heparin Sodium (Porcine) (Heparin) 5,000 units SC Q8 [facility] Last Admin: 05/21/17 15:00 Dose: Not Given Hydroxyzine HCl (Atarax) 50 mg PO Q6H PRN PRN Reason: Anxiety Vancomycin HCl 1,000 mg/ (Sodium Chloride) 250 mls @ 166.6 mls/hr IVPB Q12H [facility] Last Admin: 05/21/17 12:58 Dose: 166.6 mls/hr Clindamycin Phosphate 600 mg/ (Sodium Chloride) 54 mls @ 100 mls/hr IVPB Q8 [facility] Last Admin: 05/21/17 15:00 Dose: Not Given Ketorolac Tromethamine (Toradol) 30 mg IVP Q6 PRN PRN Reason: Pain, severe (8-10) Last Admin: 05/18/17 16:12 Dose: 30 mg Lorazepam (Ativan) 1 mg PO DAILY [facility] Last Admin: 05/21/17 09:35 Dose: 1 mg Morphine Sulfate (Morphine) 4 mg IVP Q4 PRN PRN Reason: Pain, moderate (4-7) Last Admin: 05/21/17 09:36 Dose: 4 mg Ondansetron HCl (Zofran Inj) 4 mg IVP Q4 PRN PRN Reason: Nausea/Vomiting Quetiapine Fumarate (Seroquel) 200 mg PO HS [facility] Last Admin: 05/20/17 21:02 Dose: 200 mg - Labs Labs: 05/18/17 06:35 05/18/17 06:35 Assessment and Plan - Assessment and Plan (Free Text) Assessment: Patient is seen and examined. right arm abcess site improving, cleared for discharge by surgery. D/W DR Ascencio , plan to send home on clindamycin x 7 days. Advised to follow up in the outpatient drug rehab. Also to follow up with PMD in 1 week.
--- NOTE | 2017-05-21 22:10 | CP.PCM.DIS ---
Provider - Provider Date of Admission: 05/18/17 10:19 Attending physician: Nba Ascencio MD Time Spent in preparation of Discharge (in minutes): 45 Diagnosis - Discharge Diagnosis (1) Cellulitis Status: Acute (2) Drug dependence Status: Acute (3) Opiate dependence Status: Acute (4) Alcohol dependence Status: Acute Hospital Course - Lab Results Lab Results: Micro Results 05/18/17 05:30 Blood Blood Culture - Preliminary Streptococcus Species Corynebacterium Species 05/18/17 05:30 Blood Gram Stain - Final 05/18/17 06:00 Blood Blood Culture - Preliminary Streptococcus Species Corynebacterium Species 05/18/17 06:00 Blood Gram Stain - Final 05/19/17 14:40 Arm - Right Gram Stain - Final 05/19/17 14:40 Arm - Right Wound Culture - Preliminary No growth. Most Recent Lab Values WBC 11.9 K/uL (4.8-10.8) H D 05/18/17 06:35 RBC 4.35 Mil/uL (4.40-5.90) L 05/18/17 06:35 Hgb 12.6 g/dL (12.0-18.0) 05/18/17 06:35 Hct 37.2 % (35.0-51.0) 05/18/17 06:35 MCV 85.6 fL (80.0-94.0) 05/18/17 06:35 MCH 29.1 pg (27.0-31.0) 05/18/17 06:35 MCHC 33.9 g/dL (33.0-37.0) 05/18/17 06:35 RDW 13.4 % (11.5-14.5) 05/18/17 06:35 Plt Count 324 K/uL (130-400) 05/18/17 06:35 MPV 7.1 fL (7.2-11.7) L 05/18/17 06:35 Neut % (Auto) 87.2 % (50.0-75.0) H 05/18/17 06:35 Lymph % (Auto) 9.5 % (20.0-40.0) L 05/18/17 06:35 [place] % (Auto) 2.9 % (0.0-10.0) 05/18/17 06:35 Eos % (Auto) 0.1 % (0.0-4.0) 05/18/17 06:35 Baso % (Auto) 0.3 % (0.0-2.0) 05/18/17 06:35 Neut # 10.4 K/uL (1.8-7.0) H 05/18/17 06:35 Lymph # 1.1 K/uL (1.0-4.3) 05/18/17 06:35 [place] # 0.3 K/uL (0.0-0.8) 05/18/17 06:35 Eos # 0.0 K/uL (0.0-0.7) 05/18/17 06:35 Baso # 0.0 K/uL (0.0-0.2) 05/18/17 06:35 Neutrophils % (Manual) 87 % (50-75) H 05/18/17 06:35 Lymphocytes % (Manual) 8 % (20-40) L 05/18/17 06:35 Monocytes % (Manual) 3 % (0-10) 05/18/17 06:35 Eosinophils % (Manual) 1 % (0-4) 05/18/17 06:35 Basophils % (Manual) 1 % (0-2) 05/18/17 06:35 Platelet Estimate Normal (NORMAL) 05/18/17 06:35 Large Platelets Present 05/18/17 06:35 Ovalocytes Slight 05/18/17 06:35 Sodium 141 mmol/L (132-148) 05/18/17 06:35 Potassium 4.5 mmol/L (3.6-5.2) 05/18/17 06:35 Chloride 100 mmol/L (98-107) 05/18/17 06:35 Carbon Dioxide 28 mmol/L (22-30) 05/18/17 06:35 Anion Gap 18 (10-20) 05/18/17 06:35 BUN 18 mg/dL (9-20) 05/18/17 06:35 Creatinine 1.2 MG/DL (0.8-1.5) 05/18/17 06:35 Est GFR ( Amer) > 60 05/18/17 06:35 Est GFR (Non-Af Amer) > 60 05/18/17 06:35 Random Glucose 117 mg/dL (75-110) H 05/18/17 06:35 Calcium 9.5 mg/dl (8.6-10.4) 05/18/17 06:35 Total Bilirubin 0.9 mg/dL (0.2-1.3) 05/18/17 06:35 AST 26 U/L (17-59) 05/18/17 06:35 ALT 34 U/L (21-72) 05/18/17 06:35 Alkaline Phosphatase 70 U/L (38-126) 05/18/17 06:35 Total Protein 7.3 g/dL (6.3-8.3) 05/18/17 06:35 Albumin 4.3 g/dL (3.5-5.0) 05/18/17 06:35 Globulin 3.0 gm/dL (2.2-3.9) 05/18/17 06:35 Albumin/Globulin Ratio 1.4 (1.0-2.1) 05/18/17 06:35 Urine Color Yellow (YELLOW) 05/20/17 06:27 Urine Clarity Clear (Clear) 05/20/17 06:27 Urine pH 5.0 (5.0-8.0) 05/20/17 06:27 Ur Specific [place] 1.015 (1.003-1.030) 05/20/17 06:27 Urine Protein Negative mg/dL (NEGATIVE) 05/20/17 06:27 Urine Glucose (UA) Normal mg/dL (Normal) 05/20/17 06:27 Urine Ketones Negative mg/dL (NEGATIVE) 05/20/17 06:27 Urine Blood 1+ (NEGATIVE) H 05/20/17 06:27 Urine Nitrate Negative (NEGATIVE) 05/20/17 06:27 Urine Bilirubin Negative (NEGATIVE) 05/20/17 06:27 Urine Urobilinogen Normal mg/dL (0.2-1.0) 05/20/17 06:27 Ur Leukocyte Esterase Neg [place]/uL (Negative) 05/20/17 06:27 Urine WBC (Auto) < 1 /hpf (0-5) 05/20/17 06:27 Urine RBC (Auto) 1 /hpf (0-3) 05/20/17 06:27 Ur Squamous Epith Cells < 1 /hpf (0-5) 05/20/17 06:27 Urine Bacteria Rare (<OCC) 05/18/17 06:06 Hyaline Casts 3-5 /lpf (0-2) H 05/18/17 06:06 Urine Opiates Screen Negative (NEGATIVE) 05/18/17 06:06 Urine Methadone Screen Negative (NEGATIVE) 05/18/17 06:06 Ur Barbiturates Screen Negative (NEGATIVE) 05/18/17 06:06 Ur Phencyclidine Scrn Negative (NEGATIVE) 05/18/17 06:06 Ur Amphetamines Screen Negative (NEGATIVE) 05/18/17 06:06 U Benzodiazepines Scrn Positive (NEGATIVE) 05/18/17 06:06 U Oth Cocaine Metabols Positive (NEGATIVE) 05/18/17 06:06 U Cannabinoids Screen Positive (NEGATIVE) 05/18/17 06:06 Alcohol, Quantitative < 10 mg/dl (0-10) 05/18/17 06:35 - Hospital Course Hospital Course: Patient is seen and examined. right arm abcess site improving, cleared for discharge by surgery , plan to send home on clindamycin x 7 days. Advised to follow up in the outpatient drug rehab. Also to follow up with PMD in 1 week. Discharge Exam - Head Exam Head Exam: ATRAUMATIC, NORMAL INSPECTION, NORMOCEPHALIC - Eye Exam Eye Exam: EOMI, Normal appearance, PERRL Pupil Exam: NORMAL ACCOMODATION, PERRL - ENT Exam ENT Exam: Mucous Membranes Moist - Respiratory Exam Respiratory Exam: Clear to PA & Lateral, NORMAL BREATHING PATTERN - Cardiovascular Exam Cardiovascular Exam: REGULAR RHYTHM, +S1, +S2 - GI/Abdominal Exam GI & Abdominal Exam: Normal Bowel Sounds - Rectal Exam Rectal Exam: Deferred Discharge Plan - Follow Up Plan Condition: STABLE Disposition: HOME/ ROUTINE Instructions: Abscess (GEN) Referrals: Nba Ascencio MD [Staff Provider] -
== END 2017-05-21 17:15 | disposition home or self-care (01) | DRG 263 ==
LOC: C.ER 04:43 → C.9E 10:19 → C.3T 11:27
PROVIDERS: ADMIT Internal Medicine; ATTEND Internal Medicine
PROC: 0X9D0ZZ Drainage of Right Lower Arm, Open Approach (ICD-10-PCS; 2017-05-19)
PROC: 0JBG0ZZ Excision of Right Lower Arm Subcutaneous Tissue and Fascia, Open Approach (ICD-10-PCS; principal; 2017-05-19 10:00)
DX: L03.113 Cellulitis of right upper limb (principal); L02.413 Cutaneous abscess of right upper limb; F11.20 Opioid dependence, uncomplicated; F14.20 Cocaine dependence, uncomplicated; B95.4 Other streptococcus as the cause of diseases classified elsewhere; F10.20 Alcohol dependence, uncomplicated; F32.1 Major depressive disorder, single episode, moderate; F17.210 Nicotine dependence, cigarettes, uncomplicated; R45.851 Suicidal ideations; Z88.8 Allergy status to other drugs, medicaments and biological substances; Z88.0 Allergy status to penicillin; Z91.013 Allergy to seafood